=== PATIENT | female | born 1945 | race Caucasian/White ===

== ENCOUNTER 2018-04-28 19:26 | Inpatient (IN) ==
[2018-04-28] MEDS ORDERED: 0.9 % Sodium Chloride 1,000 ML IVC ONE (19:53)
--- NOTE | 2018-04-28 20:01 | Emergency Department Note ---
Disposition Clinical Impression: Ventral hernia without obstruction or gangrene Abdominal pain Qualifiers: Abdominal location: unspecified location Qualified Code(s): R10.9 - Unspecified abdominal pain Disposition: Admitted As Inpatient Condition: Good Referrals: Luis F Patrick MD [Primary Care Provider] - Forms: ED Satisfaction Letter, Work/School Release Time of Disposition: 22:03 Abdominal Pain HPI - General Chief Complaint: ED Abdominal Pain Stated Complaint: ABD pain/CP Time Seen by Provider: 04/28/18 19:43 Source: patient, family Mode of arrival: ambulatory Limitations: no limitations Nursing Notes Reviewed: Yes Vital Signs Reviewed: Yes - History of Present Illness HPI Narrative: 9-year-old female since emergency room for abdominal pain. Started a few hours ago while sitting at home getting ready to eat dinner. States she had a few bites of steak and then suddenly was having some epigastric pain that radiated up into her chest. She had no vomiting but felt slightly nauseated at that time. She states she has had diarrhea today. She does have a history of irritable bowel problems. No documented fevers. No blood in her stool. She does not have any significant pain at this very moment but when she did she had was complaining of pain in the epigastric region as well as the lower abdomen and left upper quadrant. She denies any urinary symptoms. No other modifying factors at this time. No history of bowel problems other than she has a history of irritable bowel. She currently takes medications for this Pain Scale: 7 - Related Data Home Medications Medication Instructions Recorded Confirmed Albuterol Sulfate [Proair Hfa] 2 puff IH Q4-6H PRN 06/28/16 03/28/18 Aspirin Enteric Coated [Aspirin EC] 325 mg PO DAILY 06/28/16 03/28/18 Beclomethasone Diprop 80mcg [QVAR 1 - 2 puff IH BID 06/28/16 03/28/18 80 mcg] Cholecalciferol (Vitamin D3) 30,000 unit PO DENTON 06/28/16 03/28/18 [Vitamin D3] Citalopram [CeleXA] 20 mg PO DAILY 06/28/16 03/28/18 Ezetimibe/Simvastatin [Vytorin 1 tab PO DAILY 06/28/16 03/28/18 10-40 mg Tablet] Gluc/Cecilio-MSM#1/C/Zaid/Dawit/Bor 1 tab PO DAILY 06/28/16 03/28/18 [Osteo Bi-Flex Caplet] Dicyclomine [Bentyl] 20 mg PO TID 03/03/18 03/28/18 Eluxadoline [Viberzi] 75 mg PO BID 03/03/18 03/28/18 Memantine HCl 10 mg PO BID 03/03/18 03/28/18 Previous Rx's Medication Instructions Recorded Acetaminophen [Tylenol] 1,000 mg PO Q6HR #90 tablet 03/28/18 Allergies Allergy/AdvReac Type Severity Reaction Status Date / Time lisinopril Allergy Swelling Verified 04/28/18 19:32 of Lip/Tongue/Throat All systems ED: reviewed and negative except as stated. Constitutional: Reports: as per HPI. Denies: fever, chills Eyes: Reports: as per HPI ENT ED: Reports: as per HPI Cardiovascular: Reports: as per HPI, chest pain. Denies: palpitations, dyspnea on exertion Respiratory: Denies: cough Gastrointestinal: Reports: abdominal pain, nausea, diarrhea. Denies: vomiting Genitourinary: Reports: as per HPI Musculoskeletal: Reports: as per HPI Neurological: Reports: as per HPI Psychiatric: Reports: as per HPI Endocrine: Reports: as per HPI Hematological/Lymphatic: Reports: as per HPI Allergic/Immunologic: Reports: as per HPI Abdominal Pain PMH - Past Medical History Medical history: Reports: asthma, hyperlipidemia, hypertension, TIA Psychiatric history: Reports: anxiety - Social History Smoking status: Never smoker Alcohol use: Reports: none Drug use: Reports: none Physical Exam - General Limitations: no limitations, language barrier - Head Head exam: atraumatic, normocephalic - Eye Eye exam: Present: normal appearance - ENT ENT exam: normal exam - Neck Neck exam: Present: normal inspection - Chest Chest inspection: Present: normal inspection - Respiratory Respiratory exam: Present: normal lung sounds bilaterally - Cardiovascular Cardiovascular exam: Present: regular rate, normal rhythm, normal heart sounds - Abdominal Exam Abdominal exam: Present: soft, tenderness (Patient has tenderness on palpation in the epigastric region. No guarding or rebound tenderness. Slight suprapubic tenderness as well. Normal bowel sounds.) - Extremities Exam Extremities exam: Present: normal inspection - Expanded Lower Extremity Exam Hip/Pelvis exam: Present: normal inspection - Neurological Exam Neurological exam: Present: alert, oriented X3 - Psychiatric Psychiatric exam: Present: normal affect, normal mood - Skin Skin exam: Present: warm, dry, intact Course Vital Signs Temperature 97.9 F 04/28/18 19:32 Pulse Rate 73 04/28/18 19:32 Respiratory Rate 16 04/28/18 19:32 Blood Pressure 161/87 04/28/18 19:32 O2 Sat by Pulse Oximetry 97 04/28/18 19:32 Temperature 97.9 F 04/28/18 19:32 Pulse Rate 61 04/28/18 21:43 Respiratory Rate 18 04/28/18 20:25 Blood Pressure 143/69 04/28/18 21:43 O2 Sat by Pulse Oximetry 98 04/28/18 21:43 Oxygen Delivery Oxygen Delivery Room Air Abdominal Pain - MDM Narrative Medical decision making narrative: CT shows area distal to abd hernia mesh repair with defect that has a distended urinary bladder into it. i spoke to dr stuart will admit pt to hospital [facility] mays for tonight to decompress bladder he will eval in AM spoke to hospitalist as well labs stable neg UA vss pt ok with plan - Medical Records Medical records reviewed: Yes I reviewed the patient's medical records. - Lab Data Lab results reviewed: Yes I reviewed the patient's lab results. Result diagrams: 04/28/18 19:53 04/28/18 19:53 Lab Results 04/28/18 04/28/18 04/28/18 Range/Units 19:53 19:53 19:53 WBC 6.2 (4.3-11.1) K/mcL RBC 3.58 L (3.82-4.97) M/mcL Hgb 11.7 (11.5-15.4) g/dL Hct 35.0 L (35.3-44.9) % MCV 97.8 (83.0-100.0) fL MCH 32.7 (28.0-33.3) pg MCHC 33.4 (31.6-35.5) g/dL RDW 13.5 (11.5-14.5) % Plt Count 166 (140-400) K/mcL MPV 9.3 L (9.4-12.4) fL Immature Gran % 0.6 (0-4) % Seg Neutrophils % 66.5 % Lymphocytes % 23.5 % Monocytes % 7.0 % Eosinophils % 2.1 % Basophils % 0.3 % Neutrophils # 4.1 (1.6-8.9) K/mcL Lymphocytes # 1.5 (0.6-4.6) K/mcL Monocytes # 0.4 (0.0-1.3) K/mcL Eosinophils # 0.1 (0.0-0.6) K/mcL Basophils # 0.0 (0.0-0.2) K/mcL PT 11.6 (9.4-12.1) Seconds INR 1.1 APTT 25.8 L (26.0-36.0) Seconds Sodium 140 (136-145) mEq/L Potassium 4.0 (3.5-5.1) mEq/L Chloride 110 H (98-107) mEq/L Carbon Dioxide 24 (23-29) mEq/L BUN 11 (8-23) mg/dL Creatinine 0.74 (0.60-1.20) mg/dL Est GFR ( Amer) > 60 (> 60) Est GFR (Non-Af Amer) > 60 (> 60) BUN/Creatinine Ratio 15 (6-26) Glucose 92 (70-105) mg/dL Calculated Osmolality 289 (280-300) Lactic Acid (0.5-2.2) mmol/L Calcium 8.8 (8.6-10.3) mg/dL Total Bilirubin 0.5 (0.3-1.0) mg/dL Direct Bilirubin 0.1 (0.0-0.2) mg/dL Indirect Bilirubin 0.4 (0.0-1.2) mg/dL AST 19 (13-39) Units/L ALT 16 (7-52) Units/L Alkaline Phosphatase 77 (34-104) Units/L Troponin I < 0.03 (< 0.04) ng/mL Serum Total Protein 6.5 (6.4-8.9) g/dL Albumin 4.0 (3.5-5.7) g/dL Globulin 2.5 (2.4-3.5) g/dL Albumin/Globulin Ratio 1.6 (1.1-2.2) Lipase 29 (11-82) Units/L Urine Color (Yellow) Urine Clarity (Clear) Urine pH (5.0-8.0) pH Units Ur Specific [place] (1.010-1.025) Urine Protein (Neg-Trace) mg/dL Urine Glucose (UA) (Normal) mg/dL Urine Ketones (Negative) mg/dL Urine Blood (Negative) Urine Nitrite (Negative) Urine Bilirubin (Negative) Urine Urobilinogen (Normal) mg/dL Ur Leukocyte Esterase (Negative) Urine Microscopic RBC (0-3) per hpf Ur Squamous Epith Cells (None-Few) per lpf Urine Bacteria (None-Few) per hpf Hyaline Casts (None-Few) per lpf Ur Culture Indicated? (NO) 04/28/18 04/28/18 Range/Units 20:54 21:18 WBC (4.3-11.1) K/mcL RBC (3.82-4.97) M/mcL Hgb (11.5-15.4) g/dL Hct (35.3-44.9) % MCV (83.0-100.0) fL MCH (28.0-33.3) pg MCHC (31.6-35.5) g/dL RDW (11.5-14.5) % Plt Count (140-400) K/mcL MPV (9.4-12.4) fL Immature Gran % (0-4) % Seg Neutrophils % % Lymphocytes % % Monocytes % % Eosinophils % % Basophils % % Neutrophils # (1.6-8.9) K/mcL Lymphocytes # (0.6-4.6) K/mcL Monocytes # (0.0-1.3) K/mcL Eosinophils # (0.0-0.6) K/mcL Basophils # (0.0-0.2) K/mcL PT (9.4-12.1) Seconds INR APTT (26.0-36.0) Seconds Sodium (136-145) mEq/L Potassium (3.5-5.1) mEq/L Chloride (98-107) mEq/L Carbon Dioxide (23-29) mEq/L BUN (8-23) mg/dL Creatinine (0.60-1.20) mg/dL Est GFR ( Amer) (> 60) Est GFR (Non-Af Amer) (> 60) BUN/Creatinine Ratio (6-26) Glucose (70-105) mg/dL Calculated Osmolality (280-300) Lactic Acid 0.9 (0.5-2.2) mmol/L Calcium (8.6-10.3) mg/dL Total Bilirubin (0.3-1.0) mg/dL Direct Bilirubin (0.0-0.2) mg/dL Indirect Bilirubin (0.0-1.2) mg/dL AST (13-39) Units/L ALT (7-52) Units/L Alkaline Phosphatase (34-104) Units/L Troponin I (< 0.04) ng/mL Serum Total Protein (6.4-8.9) g/dL Albumin (3.5-5.7) g/dL Globulin (2.4-3.5) g/dL Albumin/Globulin Ratio (1.1-2.2) Lipase (11-82) Units/L Urine Color Yellow (Yellow) Urine Clarity Slightly Hazy (Clear) Urine pH 6.0 (5.0-8.0) pH Units Ur Specific [place] 1.010 (1.010-1.025) Urine Protein Negative (Neg-Trace) mg/dL Urine Glucose (UA) Normal (Normal) mg/dL Urine Ketones Negative (Negative) mg/dL Urine Blood Negative (Negative) Urine Nitrite Negative (Negative) Urine Bilirubin Negative (Negative) Urine Urobilinogen Normal (Normal) mg/dL Ur Leukocyte Esterase Negative (Negative) Urine Microscopic RBC 0-3 (0-3) per hpf Ur Squamous Epith Cells Many H (None-Few) per lpf Urine Bacteria None Seen (None-Few) per hpf Hyaline Casts None Seen (None-Few) per lpf Ur Culture Indicated? NO (NO) - Radiology Data Radiology results reviewed: Yes I reviewed the patient's radiology results. - EKG Data EKG attestation: Yes I reviewed and interpreted this EKG. EKG results narrative: EKG shows a rate of 65. No sinus rhythm. Left axis deviation. CO interval 160. QRS 87. QTC 417. No sensory acute ischemia. No other abnormalities.
[2018-04-28 21:04] LABS: Basophils % 0.3 %; Eosinophils # 0.1 K/mcL (0.0-0.6); Eosinophils % 2.1 %; Hemoglobin 11.7 g/dL (11.5-15.4); Immature Granulocytes % 0.6 % (0-4); Lymphocytes # 1.5 K/mcL (0.6-4.6); Lymphocytes % 23.5 %; Mean Corpuscular HGB Conc 33.4 g/dL (31.6-35.5); Mean Corpuscular Hemoglobin 32.7 pg (28.0-33.3); Mean Corpuscular Volume 97.8 fL (83.0-100.0); Mean Platelet Volume 9.3 fL (9.4-12.4); Monocytes # 0.4 K/mcL (0.0-1.3); Neutrophils # 4.1 K/mcL (1.6-8.9); Platelet Count 166 K/mcL (140-400); Red Blood Count 3.58 M/mcL (3.82-4.97); Red Cell Distribution Width 13.5 % (11.5-14.5); Segmented Neutrophils % 66.5 %
[2018-04-28 21:11] LABS: INR 1.1; Prothrombin Time 11.6 Seconds (9.4-12.1)
[2018-04-28 21:13] LABS: Activated Partial Thrombo Time 25.8 Seconds (26.0-36.0)
[2018-04-28 21:26] LABS: Alanine Aminotransferase 16 Units/L (7-52); Albumin/Globulin Ratio 1.6 (1.1-2.2); Alkaline Phosphatase 77 Units/L (34-104); Aspartate Amino Transferase 19 Units/L (13-39); BUN/Creatinine Ratio 15 (6-26); Bilirubin,Direct 0.1 mg/dL (0.0-0.2); Bilirubin,Indirect 0.4 mg/dL (0.0-1.2); Bilirubin,Total 0.5 mg/dL (0.3-1.0); Blood Urea Nitrogen 11 mg/dL (8-23); Calcium 8.8 mg/dL (8.6-10.3); Carbon Dioxide 24 mEq/L (23-29); Chloride 110 mEq/L (98-107); Globulin 2.5 g/dL (2.4-3.5); Glucose 92 mg/dL (70-105); Lipase 29 Units/L (11-82); Osmolality,Calculated 289 (280-300); Sodium 140 mEq/L (136-145); Total Protein 6.5 g/dL (6.4-8.9); Troponin I < 0.03 ng/mL (< 0.04); eGFR For African Americans > 60 (> 60); eGFR For Non-African Americans > 60 (> 60)
[2018-04-28 21:29] LABS: Bilirubin,Urine Negative (Negative); Blood,Urine Negative (Negative); Color,Urine Yellow (Yellow); Glucose,Urine (UA) Normal (Normal); Ketones,Urine Negative (Negative); Leukocyte Esterase,Urine Negative (Negative); Nitrite,Urine Negative (Negative); Protein,Urine Negative (Neg-Trace); Urobilinogen,Urine Normal (Normal)
[2018-04-28 21:30] LABS: Bacteria,Urine None Seen per hpf (None-Few); Clarity,Urine Slightly Hazy (Clear); Hyaline Casts,Urine None Seen per lpf (None-Few); RBC,Urine 0-3 per hpf (0-3); Squamous Epithelial Cell,Urine Many per lpf (None-Few)
--- NOTE | 2018-04-28 22:04 | Internal Med History&Physical ---
Date of Encounter: 04/28/18 Time of Encounter: 22:04 Internal Medicine - H&P: HPI Chief complaint: Abdominal pain Admitted From: Emergency Dept (Abdominal pain) Plans for Post Hospital Care: Home History of present illness: Ms. Hoffman is a 72 year old female with history of hypertension, hypokalemia , TIA, varicose veins who presents to the ED with complaints of sudden onset of abdominal pain that started a few hours prior to arrival to the ED. She was having steak at the time. She initially described epigastric pain and then also described lower abdominal pain with associated nausea but no vomiting. She reports urinary frequency. She has been dealing actually with lower abdominal discomfort for a few weeks. She saw her PCP for this multiple times and was diagnosed with UTI's and put on abx. Denies any fever, chills, diarrhea , constipation, hematochezia, melena. In the ED the patient was hemodynamically stable. She underwent laboratory work that was unremarkable including LFTs and lipase. A CT abdomen and pelvis was done which showed moderate size hiatal hernia as well as postsurgical changes of prior anterior abdominal wall mesh repair with distended bladder extending through the hernia defect inferior to the mesh. Because of the defect in the mesh, Dr. christianson was contacted through the ED and recommended admission and he will come and evaluate the patient in the morning. The patient has no surgical needs that or emergent currently. She had an abdominal hernia repair about 20 years ago and had to be operated on for repair failure about 9 years ago or so by Dr. Christianson. She denies any headache, blurry vision, chest pain, shortness of breath , lower extremity edema, urinary symptoms, or neurological symptoms. Because of the distended bladder a Mays catheter was placed. Urinalysis was negative for any infection. Past Med Surg Social Fam HX - Past Medical History Medical history: asthma, hyperlipidemia, hypertension, TIA Psychiatric history: anxiety - Social History Smoking Status: Never smoker Smokeless Tobacco Status: No Alcohol use: none Drug use: none - Family History Mother Hx Family Cardiac Disorders: Yes (Stroke) Hx Family Respiratory Disorders: No Hx Family Cancer: Yes (Cervical) Hx Family GI Disorders: No Hx Family Endocrine Disorder: Yes (DM) Hx Family Neuromuscular Disorders: No Hx Family Neurologic Disorders: No Hx Family HEENT Disorders: No Hx Family Autoimmune Disorders: No Brother Hx Family Cardiac Disorders: Yes (CVA) Hx Family Respiratory Disorders: No Hx Family Cancer: No Hx Family GI Disorders: No Hx Family Endocrine Disorder: Yes (DM) Hx Family Neuromuscular Disorders: No Hx Family Neurologic Disorders: No Hx Family HEENT Disorders: No Hx Family Autoimmune Disorders: No Internal Medicine - H&P: Meds Albuterol Sulfate [Proair Hfa] 2 puff IH Q4-6H PRN 06/28/16 [History] Aspirin Enteric Coated [Aspirin EC] 325 mg PO DAILY 06/28/16 [History] Beclomethasone Diprop 80mcg [QVAR 80 mcg] 1 - 2 puff IH BID 06/28/16 [History] Cholecalciferol (Vitamin D3) [Vitamin D3] 30,000 unit PO DENTON 06/28/16 [History] Citalopram [CeleXA] 20 mg PO DAILY 06/28/16 [History] Ezetimibe/Simvastatin [Vytorin 10-40 mg Tablet] 1 tab PO DAILY 06/28/16 [History ] Gluc/Cecilio-MSM#1/C/Zaid/Dawit/Bor [Osteo Bi-Flex Caplet] 1 tab PO DAILY 06/28/16 [ History] Dicyclomine [Bentyl] 20 mg PO TID 03/03/18 [History] Eluxadoline [Viberzi] 75 mg PO BID 03/03/18 [History] Memantine HCl 10 mg PO BID 03/03/18 [History] Acetaminophen [Tylenol] 1,000 mg PO Q6HR #90 tablet 03/28/18 [Rx] 3 Allergy/AdvReac Type Severity Reaction Status Date / Time lisinopril Allergy Swelling Verified 04/28/18 19:32 of Lip/Tongue/Throat All Systems PM: A 10-system review of systems was performed and is negative for pertinent findings except as documented above in the HPI. Review of systems: All systems reviewed are negative except as mentioned above - Constitutional Vitals: Temp Pulse Resp BP Pulse Ox 97.9 F 61 18 143/69 98 04/28/18 19:32 04/28/18 21:43 04/28/18 20:25 04/28/18 21:43 04/28/18 21:43 Exam: GEN: NAD HEENT: AT, NC, No cyanosis, oral mucosa is moist, No JVD Lymphatics: No lymphadenoapthy Eyes: Extrocular muscles intact, anicteric CVS:RRR. S1, S2, No m/r/g RESP: CTAB ABD: Soft, mild epigastric and lower abdominal tenderness with no rebound, ND, + BS EXT: No edema, No rashes, 2+ DP NEURO: Nonfocal, CN II-XII intact, No focal motor or sensory deficits Psych: Cooperative, Not anxious or depressed Internal Med - H&P Results - Labs CBC & Chem 7: 04/28/18 19:53 04/28/18 19:53 Labs: Short CBC 04/28/18 Range/Units 19:53 WBC 6.2 (4.3-11.1) K/mcL Hgb 11.7 (11.5-15.4) g/dL Hct 35.0 L (35.3-44.9) % Plt Count 166 (140-400) K/mcL Neutrophils # 4.1 (1.6-8.9) K/mcL BMP 04/28/18 19:53 Sodium 140 Potassium 4.0 Chloride 110 H Carbon Dioxide 24 BUN 11 Creatinine 0.74 Glucose 92 Calcium 8.8 Cardiac Enzymes 04/28/18 Range/Units 19:53 Troponin I < 0.03 (< 0.04) ng/mL Liver Function 04/28/18 Range/Units 19:53 Total Bilirubin 0.5 (0.3-1.0) mg/dL Direct Bilirubin 0.1 (0.0-0.2) mg/dL AST 19 (13-39) Units/L ALT 16 (7-52) Units/L Alkaline Phosphatase 77 (34-104) Units/L Albumin 4.0 (3.5-5.7) g/dL Urine 04/28/18 Range/Units 21:18 Urine Color Yellow (Yellow) Urine Clarity Slightly Hazy (Clear) Urine pH 6.0 (5.0-8.0) pH Units Ur Specific [place] 1.010 (1.010-1.025) Urine Protein Negative (Neg-Trace) mg/dL Urine Glucose (UA) Normal (Normal) mg/dL - Impressions ITS Impressions Abdomen/Pelvis CT 04/28/18 19:53 IMPRESSION: 1. Moderate-sized hiatal hernia. 2. Postsurgical changes of prior anterior abdominal wall mesh repair with distended bladder extending through a hernia defect inferior to the mesh. 3. No evidence for bowel obstruction. 4. Diverticulosis without evidence for diverticulitis. D/ / Fer Nagel MD / Fer Nagel MD Interpreting Provider: Fer Nagel MD Chest X-Ray 04/28/18 19:54 IMPRESSION: No acute process. D/ / Benjamin Wiggins MD / Benjamin Wiggins MD Interpreting Provider: Benjamin Wiggins MD - Assessment and plan (1) Abdominal pain Current Visit: Yes Status: Acute Assessment and plan: Unclear etiology but most likely secondary to the defect in the previous abdominal wall hernia repair mesh as well as a hiatal hernia. We will admit patient for observation and pain control with a consult for Dr. Christianson. Nothing by mouth after midnight. Antiemetics. IV PPI. Gentle hydration Qualifiers: Abdominal location: unspecified location Qualified Code(s): R10.9 - Unspecified abdominal pain (2) Urinary frequency Current Visit: Yes Status: Acute Assessment and plan: UA is not indicative of an infection. I think this likely from the hernia pushing on the bladder. A mays has been ordered. (3) Hyperlipemia Current Visit: No Status: Acute Assessment and plan: Resume home meds. Qualifiers: Hyperlipidemia type: unspecified Qualified Code(s): E78.5 - Hyperlipidemia , unspecified (4) Hypertension Current Visit: No Status: Acute Assessment and plan: resume home antihyperten. Qualifiers: Hypertension type: essential hypertension Qualified Code(s): I10 - Essential (primary) hypertension (5) TAMAR (obstructive sleep apnea) Current Visit: Yes Status: Acute Assessment and plan: CPAP (6) DVT prophylaxis Current Visit: No Status: Acute Assessment and plan: Heparin subcutaneous - Time Spent With Patient Total time spent is greater than 50% in coordination of care (as documented) at patient's floor/unit and/or counseling patient:
[2018-04-28] MEDS ORDERED: Ondansetron 4 MG/2 ML VIAL IVP PRN (22:05)
[2018-04-28] MEDS ORDERED: Acetaminophen 325 MG TABLET PO PRN (22:07)
[2018-04-28] MEDS ORDERED: Naloxone 0.4 MG/ML INJ IVP PRN (22:07)
[2018-04-28] MEDS ORDERED: *HR* HYDROcodone/Acet 5/325 mg TABLET PO PRN (22:07)
[2018-04-29] MEDS: 0.9 % Sodium Chloride 1,000 ML IVC SCH ×2 (00:25→16:32)
[2018-04-29] MEDS: Pantoprazole 40 MG VIAL IVP SCH ×2 (00:25→08:06)
[2018-04-29] MEDS: *HR* Heparin 5,000 UNIT/ML VIAL SQ SCH ×3 (05:08→22:33)
[2018-04-29 06:27] LABS: Basophils % 0.2 %; Eosinophils # 0.2 K/mcL (0.0-0.6); Eosinophils % 3.4 %; Hematocrit 34.1 % (35.3-44.9); Hemoglobin 11.1 g/dL (11.5-15.4); Immature Granulocytes % 0.4 % (0-4); Lymphocytes # 1.6 K/mcL (0.6-4.6); Lymphocytes % 33.7 %; Mean Corpuscular HGB Conc 32.6 g/dL (31.6-35.5); Mean Corpuscular Hemoglobin 31.9 pg (28.0-33.3); Mean Platelet Volume 9.7 fL (9.4-12.4); Monocytes # 0.4 K/mcL (0.0-1.3); Monocytes % 7.6 %; Neutrophils # 2.6 K/mcL (1.6-8.9); Platelet Count 139 K/mcL (140-400); Red Blood Count 3.48 M/mcL (3.82-4.97); Red Cell Distribution Width 13.5 % (11.5-14.5); Segmented Neutrophils % 54.7 %
[2018-04-29 07:02] LABS: BUN/Creatinine Ratio 19 (6-26); Blood Urea Nitrogen 11 mg/dL (8-23); Calcium 8.2 mg/dL (8.6-10.3); Carbon Dioxide 23 mEq/L (23-29); Chloride 112 mEq/L (98-107); Glucose 84 mg/dL (70-105); Magnesium 2.1 mg/dL (1.6-2.6); Osmolality,Calculated 293 (280-300); Potassium 3.7 mEq/L (3.5-5.1); Sodium 142 mEq/L (136-145); eGFR For African Americans > 60 (> 60); eGFR For Non-African Americans > 60 (> 60)
--- NOTE | 2018-04-29 11:04 | Internal Med Progress Note ---
Date of Encounter: 04/29/18 Time of Encounter: 11:01 - Assessment and plan (1) Abdominal pain Current Visit: Yes Status: Acute Assessment and plan: presented with ABD pain that started after eating steak. ABD CT moderate-sized hiatal hernia, postsurgical changes of previous abdominal wall mesh repair with distended bladder extending to the hernia defect. ABD pain likely secondary to the defect in the previous abdominal wall hernia repair mesh as well as a hiatal hernia. Keep NPO, IV fluids. Dr. Christianson consulted. ABD pain improved on 04/29 exam Qualifiers: Abdominal location: unspecified location Qualified Code(s): R10.9 - Unspecified abdominal pain (2) Urinary frequency Current Visit: Yes Status: Acute Assessment and plan: UA is not indicative of an infection; urinary frequency likely from hernia pushing on bladder. Cont mays catheter until evaluated by surgery (3) Hypertension Current Visit: No Status: Acute Assessment and plan: per hx. BP variable but acceptable. Not on BP medications at home. Monitor BP and add antihypertensive agent if needed. Qualifiers: Hypertension type: essential hypertension Qualified Code(s): I10 - Essential (primary) hypertension (4) Hyperlipemia Current Visit: No Status: Acute Assessment and plan: per hx. Cont home statin once med rec completed Qualifiers: Hyperlipidemia type: unspecified Qualified Code(s): E78.5 - Hyperlipidemia , unspecified (5) TAMAR (obstructive sleep apnea) Current Visit: Yes Status: Acute Assessment and plan: CPAP (6) DVT prophylaxis Current Visit: No Status: Acute Assessment and plan: Heparin subcutaneous - Time Spent With Patient Total time spent is greater than 50% in coordination of care (as documented) at patient's floor/unit and/or counseling patient: - Subjective Interval history: Seen and examined at bedside. Patient is new to me, information obtained from chart review and patient report. Says she feels much better today. Still has some mild abdominal pain but overall significantly improved. No nausea or vomiting. She does report loose stool but says she has IBS and stools are consistent with her normal bowel pattern. - Constitutional Vitals: Temp Pulse Resp BP Pulse Ox 98.1 F 48 15 148/69 97 04/29/18 10:25 04/29/18 10:25 04/29/18 10:25 04/29/18 10:25 04/29/18 10:25 General appearance: Present: A&O X 3, morbidly obese, pleasant, no acute distress - Head Head exam: Present: atraumatic, normocephalic - Eye Eye exam: Present: PERRL, conjuntiva pink, sclera anicteric Pupils: Present: PERRL - Neck Neck exam general surgery: Present: supple, trachea midline. Absent: lymphadenopathy - Respiratory Respiratory exam: Present: CTAB. Absent: accessory muscle use, rales, rhonchi, wheezes - Cardiovascular Cardiovascular exam: Present: RRR, +S1, +S2. Absent: diastolic murmur, gallop, rubs, systolic murmur - GI/Abdominal GI/Abdominal exam: Present: normal bowel sounds, soft, no peritoneal signs. Absent: distended, tenderness - Extremities Exam Extremities exam: Present: warm, radial pulses palpable and symmetrical. Absent : calf tenderness, cyanotic, pedal edema - Neurological Exam Neurological exam: Present: CN II-XII intact, oriented X3, no focal deficits. Absent: pronater drift, facial droop, speech deficit - Skin Skin exam: Present: dry, intact Internal Medicine: Result - Labs CBC & Chem 7: 04/29/18 05:57 04/29/18 05:57 Labs: Short CBC 04/29/18 Range/Units 05:57 WBC 4.7 (4.3-11.1) K/mcL Hgb 11.1 L (11.5-15.4) g/dL Hct 34.1 L (35.3-44.9) % Plt Count 139 L (140-400) K/mcL Neutrophils # 2.6 (1.6-8.9) K/mcL BMP 04/29/18 05:57 Sodium 142 Potassium 3.7 Chloride 112 H Carbon Dioxide 23 BUN 11 Creatinine 0.58 L Glucose 84 Calcium 8.2 L - ABG Interpretation ABG results: PT/INR, D-dimer PT 11.6 Seconds (9.4-12.1) 04/28/18 19:53 Consult Discharge Plan - Plan Referrals: Luis F Patrick MD [Primary Care Provider] -
--- NOTE | 2018-04-29 13:10 | Cardiology Consult Note ---
<Aureliano Harrell R - Last Filed: 04/29/18 13:06> Date of Encounter: 04/29/18 Time of Encounter: 13:06 Assessment and Plan (1) Pre-operative cardiovascular examination Current Visit: Yes Status: Acute Cardiology consulted for pre-op risk stratification prior to hernia repair. Initial troponin negative, no significant EKG changes. No recent ischemic evaluation. Presumed CAD based on echo 06/2016 which showed overall preserved EF of 50-55%, but hypokinesis of apical inferior wall. Previously has been medically managed due to lack of symptoms. Denies chest pain or dyspnea. Carotid dopplers 06/2016 right internal carotid 60-79% stenosis and left internal 40-59%. Recheck carotid dopplers. Pt states activity is limited due to arthritis and joint pain. She is able to climb stairs, but very slowly and one foot at a time. Unable to achieve 4 METS. Repeat echo to re-evaluate structure and function. Recommend ischemic evaluation prior to surgery to help accurately risk stratify. Recommend pharmacologic nuclear stress test in AM. Further recommendations/risk stratification pending echo, carotid, and stress test results. Continue to follow. (2) Abnormal echocardiogram Current Visit: Yes Status: Acute As above, 06/2016 EF 50-55%, hypokinesis of apical inferior wall. Repeat echo. Plan for stress test in AM. (3) Bradycardia Current Visit: Yes Status: Acute HR documented as 40s-60s on vitals. Per pt, heart rate chronically low. Not on AV jose luis blockers. Will order for pt to be put on telemetry. Discussion w patient/family: The assessment and plan as outlined above was discussed with the patient and/or family members who expressed understanding and agreement. All questions were answered. Thank you for involving us in the care of your patient. Please call with any questions. I will discuss all the above with Dr. Woods and make changes as necessary. History of Present Illness Consult date: 04/29/18 Requesting physician: Maria Elena Baron Consult reason: Pre-op risk stratification Chief complaint: abdominal pain History of present illness: Ms. Hoffman is a 72 year old female with PMH of HTN, hypokalemia, TIA, varicose veins, presumed CAD based on echo with apical inferior wall hypokinesis who presented to ED with complaint of sudden onset of abdominal pain after eating a few bites of steak. Pain was epigastric, radiated up her chest, associated nausea but no vomiting. A CT abdomen and pelvis was done, shows moderate size hiatal hernia as well as postsurgical changes of prior anterior abdominal wall mesh repair with distended bladder extending through the hernia defect inferior to the mesh. Because of the defect in the mesh, Dr. stuart was contacted through the ED and recommended admission. Plan is for hernia surgery. Cardiology consulted for pre-op risk stratification. Pt denies chest pain or dyspnea, but reports her joint pain and arthritis make it difficult to be very active. Past Med Surg Social Fam HX - Past Medical History Medical history: asthma, hyperlipidemia, hypertension, TIA Psychiatric history: anxiety - Social History Smoking Status: Never smoker Smokeless Tobacco Status: No Alcohol use: none Drug use: none - Family History Mother Hx Family Cardiac Disorders: Yes (Stroke) Hx Family Respiratory Disorders: No Hx Family Cancer: Yes (Cervical) Hx Family GI Disorders: No Hx Family Endocrine Disorder: Yes (DM) Hx Family Neuromuscular Disorders: No Hx Family Neurologic Disorders: No Hx Family HEENT Disorders: No Hx Family Autoimmune Disorders: No Brother Hx Family Cardiac Disorders: Yes (cva) Hx Family Respiratory Disorders: No Hx Family Cancer: No Hx Family GI Disorders: No Hx Family Endocrine Disorder: Yes (DM) Hx Family Neuromuscular Disorders: No Hx Family Neurologic Disorders: No Hx Family HEENT Disorders: No Hx Family Autoimmune Disorders: No Medications and Allergies Albuterol Sulfate [Proair Hfa] 2 puff IH Q4-6H PRN 06/28/16 [History] Aspirin Enteric Coated [Aspirin EC] 325 mg PO DAILY 06/28/16 [History] Citalopram [CeleXA] 20 mg PO DAILY 06/28/16 [History] Ezetimibe/Simvastatin [Vytorin 10-40 mg Tablet] 1 tab PO DAILY 06/28/16 [History ] Gluc/Cecilio-MSM#1/C/Zaid/Dawit/Bor [Osteo Bi-Flex Caplet] 1 tab PO DAILY 06/28/16 [ History] Dicyclomine [Bentyl] 20 mg PO TID 03/03/18 [History] Eluxadoline [Viberzi] 75 mg PO BID 03/03/18 [History] Memantine HCl 10 mg PO BID 03/03/18 [History] Acetaminophen [Tylenol] 1,000 mg PO Q6HR #90 tablet 03/28/18 [Rx] Cholecalciferol (D-3) [Vitamin D] 4,000 unit PO DAILY 04/29/18 [History] [place]-3/Dha/Epa/Fish Oil [Fish Oil 1,000 mg Softgel] 1 cap PO DAILY 04/29/18 [ History] 3 Allergy/AdvReac Type Severity Reaction Status Date / Time lisinopril Allergy Swelling Verified 04/29/18 11:34 of Lip/Tongue/Throat All Systems Review: The remainder of the systems were reviewed and are negative - Gastrointestinal Gastrointestinal: abdominal pain, nausea Physical Examination Vital Signs, Last 4 Hours Temp Pulse Resp BP Pulse Ox 04/29/18 10:25 98.1 F 48 15 148/69 97 Vital Signs Temp Pulse Resp BP Pulse Ox 04/29/18 10:25 98.1 F 48 15 148/69 97 04/29/18 06:43 97.7 F 54 15 137/71 98 04/29/18 04:48 98.3 F 63 14 114/70 98 04/29/18 00:13 97.8 F 57 14 151/71 98 04/28/18 23:16 18 146/85 04/28/18 22:24 56 18 151/93 96 04/28/18 21:43 61 143/69 98 04/28/18 20:25 62 18 124/58 99 04/28/18 19:57 68 18 134/76 96 04/28/18 19:41 85 18 158/98 97 04/28/18 19:32 97.9 F 73 16 161/87 97 Intake and Output 04/28/18 04/29/18 04/29/18 23:59 07:59 15:59 Intake Total 1000 / 1000 0 / 0 0 / 0 Output Total 1000 / 1000 550 / 550 Balance 1000 / 1000 -1000 / -1000 -550 / -550 Intake: IV Fluids 1000 / 1000 0.9 % Sodium Chloride 1,000 ML 1000 / 1000 @ 3750 mls/hr IVC .Q16M ONE Rx# :[id number] Oral 0 / 0 0 / 0 Output: Urine 0 / 0 Catheter 1000 / 1000 550 / 550 Other: Meal NPO Stool Characteristics Normal for Patient Weight 86.636 kg 90.855 kg Blood Glucose* 81 90 Patient Weight 04/29/18 23:59 Weight 90.855 kg General: Conversant, No Apparent Distress HEENT: Atraumatic, Normocephaly, Mucus Membranes Moist Neck: No JVD, Normal carotid pulses Cardiac: Reg Rate and Rhythm, Normal S1 and S2, No Murmur Lungs: Normal Breath Sounds, No Wheeze, Rales, Rhonchi Neuro: Alert and responsive, No focal deficits noted Abdomen: Other (tender) Skin: No rashes noted on visualized skin Musculoskeletal: No Chest Wall Tenderness Extremities: No Clubbing, No Cyanosis, No Edema, Normal Pulses Results 04/29/18 05:57 04/29/18 05:57 Lab Results 04/29/18 04/29/18 05:57 05:57 WBC 4.7 Hgb 11.1 L Hct 34.1 L Plt Count 139 L Sodium 142 Potassium 3.7 Chloride 112 H Carbon Dioxide 23 BUN 11 Creatinine 0.58 L Glucose 84 Calcium 8.2 L Magnesium 2.1 Short CBC 04/29/18 04/28/18 Range/Units 05:57 19:53 WBC 4.7 6.2 (4.3-11.1) K/mcL Hgb 11.1 L 11.7 (11.5-15.4) g/dL Hct 34.1 L 35.0 L (35.3-44.9) % Plt Count 139 L 166 (140-400) K/mcL Neutrophils # 2.6 4.1 (1.6-8.9) K/mcL BMP 04/29/18 04/28/18 Range/Units 05:57 19:53 Sodium 142 140 (136-145) mEq/L Potassium 3.7 4.0 (3.5-5.1) mEq/L Chloride 112 H 110 H (98-107) mEq/L Carbon Dioxide 23 24 (23-29) mEq/L BUN 11 11 (8-23) mg/dL Creatinine 0.58 L 0.74 (0.60-1.20) mg/dL Glucose 84 92 (70-105) mg/dL Calcium 8.2 L 8.8 (8.6-10.3) mg/dL Cardiac Enzymes 04/28/18 Range/Units 19:53 Troponin I < 0.03 (< 0.04) ng/mL Liver Function 04/28/18 Range/Units 19:53 Total Bilirubin 0.5 (0.3-1.0) mg/dL Direct Bilirubin 0.1 (0.0-0.2) mg/dL AST 19 (13-39) Units/L ALT 16 (7-52) Units/L Alkaline Phosphatase 77 (34-104) Units/L Albumin 4.0 (3.5-5.7) g/dL Urine 04/28/18 Range/Units 21:18 Urine Color Yellow (Yellow) Urine Clarity Slightly Hazy (Clear) Urine pH 6.0 (5.0-8.0) pH Units Ur Specific [place] 1.010 (1.010-1.025) Urine Protein Negative (Neg-Trace) mg/dL Urine Glucose (UA) Normal (Normal) mg/dL Impressions Abdomen/Pelvis CT 04/28/18 19:53 IMPRESSION: 1. Moderate-sized hiatal hernia. 2. Postsurgical changes of prior anterior abdominal wall mesh repair with distended bladder extending through a hernia defect inferior to the mesh. 3. No evidence for bowel obstruction. 4. Diverticulosis without evidence for diverticulitis. D/ / Fer Nagel MD / Fer Nagel MD Interpreting Provider: Fer Nagel MD Chest X-Ray 04/28/18 19:54 IMPRESSION: No acute process. D/ / Benjamin Wiggins MD / Benjamin Wiggins MD Interpreting Provider: Benjamin Wiggins MD Active Medications Acetaminophen (Tylenol) 650 mg PO Q6HR PRN PRN Reason: Mild Pain/Fever Stop: 10/28/18 22:08 Hydrocodone Bitart/Acetaminophen ([place] 5-325 Mg) 1 tab PO Q6HR PRN PRN Reason: Moderate Pain Stop: 10/28/18 22:08 Heparin Sodium (Porcine) (Heparin) 5,000 unit SQ Q8HCO HARESH Stop: 10/29/18 06:01 Last Admin: 04/29/18 05:08 Dose: Not Given Sodium Chloride (0.9 % Sodium Chloride) 1,000 mls @ 100 mls/hr IVC .Q10H HARESH Stop: 10/28/18 22:31 Last Admin: 04/29/18 00:25 Dose: 100 mls/hr Naloxone HCl (Narcan) 0.4 mg IVP Q2MIN PRN PRN Reason: SEE COMMENTS Stop: 10/28/18 22:08 Ondansetron HCl (Zofran) 4 mg IVP Q6HR PRN; Protocol PRN Reason: Nausea And Vomiting Stop: 10/28/18 22:06 Pantoprazole Sodium (Protonix) 40 mg IVP DAILY HARESH Stop: 10/28/18 22:31 Last Admin: 04/29/18 08:06 Dose: 40 mg - Imaging and Cardiology Echo: report reviewed - EKG Interpretation EKG results cardiology: personally reviewed (SR, left axis deviation) Consult Discharge Plan - Plan Referrals: Luis F Patrick MD [Primary Care Provider] - <Adiel Woods - Last Filed: 04/29/18 15:08> Date of Encounter: 04/29/18 - Attending Attestation I have personally performed a face to face evaluation on this patient. I have reviewed and agree with the care plan. History and Exam by me shows: yo YOF here for abdomainal pain and planned surgery in 24 hours for hernia repair. Previous ECHO with RWMA and presumed CAD but no ischemic eval done. Patient limited in her mobility due to arthritis and hence functional capacity cannot be defined. Will pursure ischemic work up with chemical stress test. If surgery is emergent then no cardiac testing and patient should proceed with surgery. Assessment and Plan Discussion w patient/family: The assessment and plan as outlined above was discussed with the patient and/or family members who expressed understanding and agreement. All questions were answered. Thank you for involving us in the care of your patient. Please call with any questions. History of Present Illness History of present illness: Ms. Hoffman is a 72 year old female All Systems Review: The remainder of the systems were reviewed and are negative Physical Examination Vital Signs, Last 4 Hours Temp Pulse Resp BP Pulse Ox 04/29/18 14:35 97.8 F 66 16 116/68 97 Results 04/29/18 05:57 04/29/18 05:57 Lab Results 04/29/18 04/29/18 05:57 05:57 WBC 4.7 Hgb 11.1 L Hct 34.1 L Plt Count 139 L Sodium 142 Potassium 3.7 Chloride 112 H Carbon Dioxide 23 BUN 11 Creatinine 0.58 L Glucose 84 Calcium 8.2 L Magnesium 2.1
--- NOTE | 2018-04-29 13:52 | General Surgery Consult Note ---
Date of Encounter: 04/29/18 Time of Encounter: 13:00 History of Present Illness Requesting physician: Tal Girard History of present illness: 72 yo, admitted after presenting to [facility] ED for further evaluation and treatment of abrupt onset abdominal pain. This was accompanied by nausea but no emesis. No fever or chills. Patient describes an episode of diarrhea without evidence of blood per rectum. Laboratories were fairly unremarkable. Hematocrit was low at 35.0, chloride was elevated at 110 but the remainder of her CBC, lites, BUN, creatinine and LFTs were within normal limits. CT abdomen/ pelvis demonstrating a moderate sized hiatal hernia; a distended urinary bladder prolapsing through a suprapubic abdominal wall defect; evidence of previous ventral incisional hernia repair with mesh. The suprapubic abdominal wall defect is notably caudal to this prior hernia repair with mesh. Past medical history: Arthritis; asthma, hyperlipidemia, hypertension; and prior TIA (Dr. Dumont, [facility] has determined that this was not a stroke); dementia, generalized anxiety; history of cervical cancer Surgical history: Left knee arthroscopy; partial hysterectomy; exploratory celiotomy with removal of cervix and ovaries; repair of ventral incisional hernia using mesh, 2007 - is apparently required extensive lysis of adhesions, partial omentectomy and incidental appendectomy. varicose vein stripping; repeat treatment of varicosities approximately 2 months ago. The patient now has evidence of a recurrent ventral incisional hernia caudal to the mesh prosthesis used in 2007. Allergies: Lisinopril Medications: Albuterol sulfate (ProAir HFA) 2 puffs every 4-6 hours as needed Aspirin 325 mg by mouth daily Beclomethasone dipropionate 80 g per actuation (Qvar) 1-2 puffs twice a day Cholecalciferol 30,000 units by mouth every Saturday Citalopram 20 mg by mouth daily Ezetimibe/simvastatin (Vytorin 10/40) 1 tablet by mouth daily Osteo Bi-Flex 1 by mouth daily Dicyclomine 20 mg by mouth 3 times a day Eluxadoline 75 mg by mouth twice a day Amantadine 10 mg by mouth twice a day Acetaminophen 1000 mg by mouth every 6 hours Social history: Patient is , lives with her spouse; she has never smoked ; the patient denies any alcohol or illicit drug use. On physical examination: Obese female who appears to be younger than her stated age resting comfortably in her hospital bed. She is in no acute distress. She is 1.57 m, 90.86 kg, BMI 36.6. Patient is currently afebrile, 98.1; pulse 48-63, respirations 15, blood pressure 148/69. SPO2 on room air 97%. Skin: Warm, no obvious jaundice Lungs: Clear, no obvious abdominal pain with deep inspiration Cardiac: Rate was slow but regular; no appreciable murmurs Abdomen: Obese with a palpable fascial defect suprapubically, left of midline. No obvious incarcerated tissue. No obvious tenderness. No peritoneal signs or rebound. Cornell catheter present, draining clear urine. Active bowel sounds. Extremities: No obvious clubbing, cyanosis, or edema. CT abdomen/pelvis reviewed with [facility] Labs reviewed Impression: 72-year-old female referred for further surgical evaluation and treatment after presenting to the [facility] ED with abrupt onset of abdominal pain. Patient has radiologic evidence of a prior ventral incisional hernia repair using mesh with a recurrent ventral incisional hernia caudal to the prior mesh repair with urinary bladder prolapsing through the defect. No obvious bowel involvement/bowel obstruction. L lengthy discussion ensued. Surgical repair of this defect has been recommended and discussed in detail. The patient admits to being seen by her primary care physician with Vague complaints of suprapubic pain and has been treated for recurrent urinary tract infection. I suspect these complaints are due to the hernia and portion of analia anterior bladder prolapsing thru the defect in the anterior abdominal wall. Despite the patient's complaints of pain, this was not clinically apparent during my examination of the patient. Risks of surgery include hemorrhage, infection, intra-abdominal abscess, injury to adjacent structures, stroke/TIA, cardiac dysrhythmia, [place], pneumonia/respiratory failure and recurrent hernia. The patient has a history of at least 2 prior pelvic surgeries. Dense adhesions may be present and increase the difficulty of completing the recommended surgical repair. The risks of continued expectant follow-up, include urinary retention, recurrent bladder infections and possible ascending infection/pyelonephritis, enlargement of the hernia with progressive prolapse of the urinary bladder, and involvement of colon and other intra- abdominal structures. The patient provides a history of recent cardiac evaluation (03/28/2018) prior to left lower extremity phlebectomy completed by Dr. Rothman. A pre op cardiac consultation will be requested with surgery planned in AM if deemed cardiac stable. Past Med Surg Social Fam HX - Past Medical History Medical history: asthma, hyperlipidemia, hypertension, TIA Psychiatric history: anxiety - Social History Smoking Status: Never smoker Smokeless Tobacco Status: No Alcohol use: none Drug use: none - Family History Mother Hx Family Cardiac Disorders: Yes (Stroke) Hx Family Respiratory Disorders: No Hx Family Cancer: Yes (Cervical) Hx Family GI Disorders: No Hx Family Endocrine Disorder: Yes (DM) Hx Family Neuromuscular Disorders: No Hx Family Neurologic Disorders: No Hx Family HEENT Disorders: No Hx Family Autoimmune Disorders: No Brother Hx Family Cardiac Disorders: Yes (cva) Hx Family Respiratory Disorders: No Hx Family Cancer: No Hx Family GI Disorders: No Hx Family Endocrine Disorder: Yes (DM) Hx Family Neuromuscular Disorders: No Hx Family Neurologic Disorders: No Hx Family HEENT Disorders: No Hx Family Autoimmune Disorders: No Medications and Allergies Albuterol Sulfate [Proair Hfa] 2 puff IH Q4-6H PRN 06/28/16 [History] Aspirin Enteric Coated [Aspirin EC] 325 mg PO DAILY 06/28/16 [History] Citalopram [CeleXA] 20 mg PO DAILY 06/28/16 [History] Ezetimibe/Simvastatin [Vytorin 10-40 mg Tablet] 1 tab PO DAILY 06/28/16 [History ] Gluc/Cecilio-MSM#1/C/Zaid/Dawit/Bor [Osteo Bi-Flex Caplet] 1 tab PO DAILY 06/28/16 [ History] Dicyclomine [Bentyl] 20 mg PO TID 03/03/18 [History] Eluxadoline [Viberzi] 75 mg PO BID 03/03/18 [History] Memantine HCl 10 mg PO BID 03/03/18 [History] Acetaminophen [Tylenol] 1,000 mg PO Q6HR #90 tablet 03/28/18 [Rx] Cholecalciferol (D-3) [Vitamin D] 4,000 unit PO DAILY 04/29/18 [History] [place]-3/Dha/Epa/Fish Oil [Fish Oil 1,000 mg Softgel] 1 cap PO DAILY 04/29/18 [ History] 3 Allergy/AdvReac Type Severity Reaction Status Date / Time lisinopril Allergy Swelling Verified 04/29/18 11:34 of Lip/Tongue/Throat Review of Systems All systems PM: The remainder of the systems were reviewed and are negative General Surgery Exam Initial Vital Signs Temp Pulse Resp BP Pulse Ox 97.9 F 73 16 161/87 97 04/28/18 19:32 04/28/18 19:32 04/28/18 19:32 04/28/18 19:32 04/28/18 19:32 Exam Initial Vital Signs Temp Pulse Resp BP Pulse Ox 97.9 F 73 16 161/87 97 04/28/18 19:32 04/28/18 19:32 04/28/18 19:32 04/28/18 19:32 04/28/18 19:32 Results - Labs 04/29/18 05:57 04/29/18 05:57 Abnormal lab results RBC 3.48 M/mcL (3.82-4.97) L 04/29/18 05:57 Hgb 11.1 g/dL (11.5-15.4) L 04/29/18 05:57 Hct 34.1 % (35.3-44.9) L 04/29/18 05:57 Plt Count 139 K/mcL (140-400) L 04/29/18 05:57 APTT 25.8 Seconds (26.0-36.0) L 04/28/18 19:53 Chloride 112 mEq/L (98-107) H 04/29/18 05:57 Creatinine 0.58 mg/dL (0.60-1.20) L 04/29/18 05:57 Calcium 8.2 mg/dL (8.6-10.3) L 04/29/18 05:57 Ur Squamous Epith Cells Many per lpf (None-Few) H 04/28/18 21:18 Diabetes panel 04/29/18 Range/Units 05:57 Sodium 142 (136-145) mEq/L Potassium 3.7 (3.5-5.1) mEq/L Chloride 112 H (98-107) mEq/L Carbon Dioxide 23 (23-29) mEq/L BUN 11 (8-23) mg/dL Creatinine 0.58 L (0.60-1.20) mg/dL Glucose 84 (70-105) mg/dL Calcium 8.2 L (8.6-10.3) mg/dL Calcium panel 04/29/18 Range/Units 05:57 Calcium 8.2 L (8.6-10.3) mg/dL Pituitary panel 04/29/18 Range/Units 05:57 Sodium 142 (136-145) mEq/L Potassium 3.7 (3.5-5.1) mEq/L Chloride 112 H (98-107) mEq/L Carbon Dioxide 23 (23-29) mEq/L BUN 11 (8-23) mg/dL Creatinine 0.58 L (0.60-1.20) mg/dL Glucose 84 (70-105) mg/dL Calcium 8.2 L (8.6-10.3) mg/dL Adrenal panel 04/29/18 Range/Units 05:57 Sodium 142 (136-145) mEq/L Potassium 3.7 (3.5-5.1) mEq/L Chloride 112 H (98-107) mEq/L Carbon Dioxide 23 (23-29) mEq/L BUN 11 (8-23) mg/dL Creatinine 0.58 L (0.60-1.20) mg/dL Glucose 84 (70-105) mg/dL Calcium 8.2 L (8.6-10.3) mg/dL All other labs normal. Consult Discharge Plan - Plan Referrals: Luis F Patrick MD [Primary Care Provider] -
--- NOTE | 2018-04-29 19:24 | Anesthesia Evaluation PreOp ---
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: TIA Other Medical History: Denies Any Significant HX Anesthesia History: No Prior Anesthetic Complications : No Alcohol Use: none Drug use: none Medications and Allergies Albuterol Sulfate [Proair Hfa] 2 puff IH Q4-6H PRN 06/28/16 [History] Aspirin Enteric Coated [Aspirin EC] 325 mg PO DAILY 06/28/16 [History] Citalopram [CeleXA] 20 mg PO DAILY 06/28/16 [History] Ezetimibe/Simvastatin [Vytorin 10-40 mg Tablet] 1 tab PO DAILY 06/28/16 [History ] Gluc/Cecilio-MSM#1/C/Zaid/Dawit/Bor [Osteo Bi-Flex Caplet] 1 tab PO DAILY 06/28/16 [ History] Dicyclomine [Bentyl] 20 mg PO TID 03/03/18 [History] Eluxadoline [Viberzi] 75 mg PO BID 03/03/18 [History] Memantine HCl 10 mg PO BID 03/03/18 [History] Acetaminophen [Tylenol] 1,000 mg PO Q6HR #90 tablet 03/28/18 [Rx] Cholecalciferol (D-3) [Vitamin D] 4,000 unit PO DAILY 04/29/18 [History] [place]-3/Dha/Epa/Fish Oil [Fish Oil 1,000 mg Softgel] 1 cap PO DAILY 04/29/18 [ History] 3 Allergy/AdvReac Type Severity Reaction Status Date / Time lisinopril Allergy Swelling Verified 04/29/18 11:34 of Lip/Tongue/Throat - Meds/Allergy Pre-op Review Medications Reviewed: Yes Allergies Reviewed: Yes Beta Blockers on Current Med List: No Anesthesia Results - Labs 04/29/18 05:57 04/29/18 05:57 - Imaging EKG: report reviewed (SR marked Left [place] Deviation) Additional studies: ECHO EF 55% but Apical Hypokinesis Anesthesia Exam O2 Sat Height 1.57 m Height 1.57 m Weight 90.855 kg Weight 90.855 kg Weight 86.636 kg O2 Sat by Pulse Oximetry 97 O2 Sat by Pulse Oximetry 97 O2 Sat by Pulse Oximetry 97 O2 Sat by Pulse Oximetry 98 O2 Sat by Pulse Oximetry 98 O2 Sat by Pulse Oximetry 98 O2 Sat by Pulse Oximetry 96 O2 Sat by Pulse Oximetry 98 O2 Sat by Pulse Oximetry 99 O2 Sat by Pulse Oximetry 96 O2 Sat by Pulse Oximetry 97 O2 Sat by Pulse Oximetry 97 Vital Signs Temp Pulse Resp BP Pulse Ox 97.9 F 73 16 161/87 97 04/28/18 19:32 04/28/18 19:32 04/28/18 19:32 04/28/18 19:32 04/28/18 19:32 Height: 5'2 Weight: 200 lbs NPO (# of Hours): MN Pain Scale: 0 - HEENT Pupil (Motor): Pupils equal, EOMI Mallampati: II Teeth: Normal Oral Opening: Greater than 3 - RED HAT OPEN STACK 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 LOC: Oriented RED HAT OPEN STACK 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 Motor: Normal RUE, Normal LUE, Normal RLE, Normal LLE, Normal Face RED HAT OPEN STACK 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 Sensory: Normal: RUE, LUE, RLE, LLE, Face - Cardiac Rhythm: Regular Murmur: None JVD: No Carotid Bruit: No - Pulmonary Breath Sounds: bilateral Clear Respiratory Effort: Symmetrical Anesthesia Assess/Plan ASA Score: 3 (HTN Astma TIA) Modified Gould Scale for Level of Consciousness: Cooperative, oriented, and tranquil Anesthetic Plan: General Monitoring Plan: Standard Monitors Recovery Plan: PACU (Discussed GA, agrees to proceed, will have stress test in AM)
[2018-04-30] MEDS: 0.9 % Sodium Chloride 1,000 ML IVC SCH (03:19)
[2018-04-30] MEDS ORDERED: Regadenoson 0.4 MG/5 ML SYRINGE IVP ONE (05:56)
[2018-04-30] MEDS: *HR* Heparin 5,000 UNIT/ML VIAL SQ SCH (06:20)
--- NOTE | 2018-04-30 08:13 | Electrocardiograph Report ---
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
[2018-04-30] MEDS: Pantoprazole 40 MG VIAL IVP SCH (09:12)
[2018-04-30] MEDS ORDERED: *HR* Propofol 200 MG/20 ML VIAL IVP ONE (10:18)
[2018-04-30] MEDS ORDERED: *HR* FentaNYL (PF) 100 MCG/2 ML VIAL ONE ×3 (10:18→13:06)
[2018-04-30] MEDS ORDERED: Lidocaine -MPF 2% 2 ML VIAL ONE (10:20)
--- NOTE | 2018-04-30 10:42 | Internal Med Progress Note ---
Date of Encounter: 04/30/18 Time of Encounter: 10:43 - Assessment and plan (1) Abdominal pain Current Visit: Yes Status: Acute Assessment and plan: presented with ABD pain that started after eating steak on day of admission. ABD CT showed moderate-sized hiatal hernia, postsurgical changes of previous abdominal wall mesh repair with distended bladder extending to the hernia defect. Evaluated by General Surgery who is planning surgical repair hernia defect. OR planned 04/30/18 Qualifiers: Abdominal location: unspecified location Qualified Code(s): R10.9 - Unspecified abdominal pain (2) Urinary frequency Current Visit: Yes Status: Acute Assessment and plan: likely from hernia pushing on bladder. UA not indicative of UTI. Cont mays catheter. (3) Hypertension Current Visit: No Status: Acute Assessment and plan: per hx. BP variable but acceptable. Not on BP medications at home. Monitor BP and add antihypertensive agent if needed. Qualifiers: Hypertension type: essential hypertension Qualified Code(s): I10 - Essential (primary) hypertension (4) Hyperlipemia Current Visit: No Status: Acute Assessment and plan: per hx. Cont home statin once med rec completed Qualifiers: Hyperlipidemia type: unspecified Qualified Code(s): E78.5 - Hyperlipidemia , unspecified (5) TAMAR (obstructive sleep apnea) Current Visit: Yes Status: Acute Assessment and plan: CPAP (6) Dementia Current Visit: Yes Status: Acute Assessment and plan: per hx. Mentation appears at baseline. Cont home medications. Qualifiers: Dementia type: unspecified type Dementia behavioral disturbance: without behavioral disturbance Qualified Code(s): F03.90 - Unspecified dementia without behavioral disturbance (7) DVT prophylaxis Current Visit: No Status: Acute Assessment and plan: SCD - Time Spent With Patient Total time spent is greater than 50% in coordination of care (as documented) at patient's floor/unit and/or counseling patient: - Subjective Interval history: Seen and examined at bedside; says he had an uneventful night. Still having some mild, lower ABD pain but overall improved - Constitutional Vitals: Temp Pulse Resp BP Pulse Ox 97.8 F 66 20 145/86 97 04/30/18 06:48 04/30/18 06:48 04/30/18 06:48 04/30/18 06:48 04/30/18 06:48 General appearance: Present: A&O X 2, A&O X 3, morbidly obese, pleasant, no acute distress - Head Head exam: Present: atraumatic, normocephalic - Eye Eye exam: Present: PERRL, conjuntiva pink, sclera anicteric Pupils: Present: PERRL - Neck Neck exam general surgery: Present: supple, trachea midline. Absent: lymphadenopathy - Respiratory Respiratory exam: Present: CTAB. Absent: accessory muscle use, rales, rhonchi, wheezes - Cardiovascular Cardiovascular exam: Present: RRR, +S1, +S2. Absent: diastolic murmur, gallop, rubs, systolic murmur - GI/Abdominal GI/Abdominal exam: Present: normal bowel sounds, soft, no peritoneal signs. Absent: distended, tenderness - Extremities Exam Extremities exam: Present: warm, radial pulses palpable and symmetrical. Absent : calf tenderness, cyanotic, pedal edema - Neurological Exam Neurological exam: Present: CN II-XII intact, oriented X3, no focal deficits. Absent: pronater drift, facial droop, speech deficit - Skin Skin exam: Present: dry, intact Internal Medicine: Result - Labs CBC & Chem 7: 04/29/18 05:57 04/29/18 05:57 - ABG Interpretation ABG results: PT/INR, D-dimer PT 11.6 Seconds (9.4-12.1) 04/28/18 19:53 - Impressions Impressions Echocardiogram 04/29/18 13:28 Impressions: LVEF 50%. Mild left ventricular diastolic dysfunction. Normal right ventricular structure and function. Severely dilated left atrium. Mild-moderate mitral regurgitation. Mild tricuspid regurgitation. No pulmonary hypertension. Left Ventricular Wall Motion: Rest Echo Findings All wall segments showed normal motion. Findings: Study Quality * Technically adequate exam. ECG Findings * Sinus bradycardia. Left Ventricle * LVEF 50%. * Mild left ventricular diastolic dysfunction. * Normal LV chamber size and wall thickness. Right Ventricle * Normal right ventricular structure and function. Left Atrium * Severely dilated left atrium. Right Atrium * Normal right atrial size. Mitral Valve * Normal mitral valve structure. * No mitral stenosis. * Mild-moderate mitral regurgitation. Aortic Valve * No aortic regurgitation. * Aortic valve not well visualized. * No aortic stenosis. Tricuspid Valve * Tricuspid valve not well visualized. * Mild tricuspid regurgitation. * Estimated RA pressure is 3 mmHg. * Estimated RVSP is 25 mmHg. * No pulmonary hypertension. Pulmonic Valve * Pulmonic valve is not well visualized. * No pulmonic stenosis. * No pulmonic regurgitation. Pulmonary Artery * Pulmonary artery not well visualized. Aorta * Normally sized aortic root. Pericardium * There is no pericardial effusion present. Interatrial Septum * No evidence of PFO by color Doppler. IVC * Normal IVC dimensions and inspiratory collapse. Consult Discharge Plan - Plan Referrals: Luis F Patrick MD [Primary Care Provider] -
[2018-04-30] MEDS ORDERED: MORPHINE SUL Oral CONC 10 MG/0.5 ML ORAL.SYG SL PRN (10:50)
[2018-04-30] MEDS ORDERED: Dexamethasone 4 MG/ML VIAL IVP ONE (10:50)
[2018-04-30] MEDS ORDERED: *HR* OxyCODONE Immed Rel 5 MG TABLET PO PRN (10:50)
[2018-04-30] MEDS ORDERED: *HR* HYDROmorphone 2 MG TABLET PO PRN (10:50)
[2018-04-30] MEDS ORDERED: Bupivacaine/EPI 1:200k 0.25%PF 30 ML VIAL ONE (10:54)
[2018-04-30] MEDS ORDERED: Ondansetron 4 MG/2 ML VIAL ONE (11:13)
--- NOTE | 2018-04-30 11:35 | Event Note ---
Date of Encounter: 04/30/18 Time of Encounter: 11:33 - Cardiology Event Note Pharmacologic nuclear stress test negative for ischemia or infarct, gated EF 63% . TTE resulted--EF 50%, normal wall motion. Severely dilated LA, mild-moderate MR, mild TR. Pt already taken down for surgery. From cardiac standpoint she is low to moderate risk for surgery given negative stress test and normal wall motion on echo with preserved EF. Carotid dopplers show stable disease, left 60-79%, right 40-59%. Recommend resuming Vytorin and resume ASA when okay with surgery. Cardiology signing off. Reconsult PRN.
[2018-04-30] MEDS ORDERED: EPHEDrine 50 MG/ML VIAL ONE (12:03)
[2018-04-30] MEDS ORDERED: *HR* Rocuronium Bromide 50 MG/5 ML VIAL ONE (12:41)
[2018-04-30] MEDS ORDERED: Neostigmine Methylsulfate 3 MG/3 ML SYRINGE ONE (14:23)
[2018-04-30] MEDS ORDERED: Ketorolac 30 MG/ML VIAL ONE (14:23)
[2018-04-30] MEDS ORDERED: *HR* Morphine 10 MG/ML VIAL ONE (14:33)
--- NOTE | 2018-04-30 14:57 | Operative Note ---
Date of procedure: 04/30/18 Pre-op diagnosis: ventral incisional hernia with prolapsing urinary bladder Post-op diagnosis: same Procedure: Exploratory celiotomy, lysis of adhesions (enduring approximately 90 minutes); removal of previous mesh prosthesis; partial omentectomy; suture closure of ventral incisional hernia Complications: None apparent Anesthesia: GETA Local Anesthetics: 0.25% Sensorcaine HCL with Epinephrine 1:200,000 SubQ (cc) ( 23 mL) Surgeon: Zeeshan Christianson Was there an language assistant present: No Estimated blood loss (cc): 150 IV fluids (cc): 1,600 Specimen: hernia sac and omentum Condition: stable Disposition: PACU Procedure in Detail: The patient was brought to the operating room where she was placed supine on the procedure table. The patient was appropriately identified as to person and procedure. The accuracy of this information was confirmed by the patient and procedure team. The patient was then intubated and anesthetized by [facility]. The abdomen was prepped and draped in usual sterile fashion. When examined under anesthesia, a ventral hernia was noted in the lower left abdomen corresponding to a previous Pfannenstiel incision. A midline incision was planned. Several milliliters of 0.25% bupivacaine with 1-200,000 units epinephrine was infiltrated into the proposed incision site. The skin was then incised with dissection extended to the fascia. Bleeding points were controlled with electrocautery. The fascia was divided in the midline. In the mid abdomen the previous mesh prosthesis was encountered. The abdominal wall was grasped, elevated and the mesh incised. Peritoneal contents were adherent to the mesh prosthesis but these adhesions were mobilized using sharp dissection. Eventually I was able to access the peritoneal cavity. Extended dissection/lysis of adhesions enduring approximately 90 minutes was necessary to free the intraperitoneal structures, reduce the prolapsing urinary bladder, and removed the previous mesh prosthesis. The mesh prosthesis had previously been placed to repair a midline ventral incisional hernia. This hernia repair appeared to be intact. The urinary bladder was prolapsing through a fascial defect measuring approximately 5 cm in diameter, left of midline. This fascial defect was suture repaired with interrupted 0 Vicryl. It was necessary to resect a portion of the omentum this was aided during the lysis of adhesions. This was accomplished with the aid of a Yecuris Ligasure disssector. When the lysis of adhesions was completed, the small bowel and colon were free of adhesions or potential internal hernias. The fascial defect in the anterior abdominal wall had been repaired. The midline incision was then closed in layers. 6 #2 Monosoft retention sutures were placed through and through the anterior abdominal wall. The fascia was then closed in the midline with interrupted [id number] 0 Vicryl. The subcutaneous tissue was reapproximated with running 3-0 Vicryl. The skin edges were approximated with santiago. The retention sutures were secured. A fluffy gauze dressing was applied. The patient was taken to recovery in stable condition. Needle, sponge , and instrument counts were correct at the close of the case.
[2018-04-30] MEDS ORDERED: Ringers Solution, Lactated 1,000 ML IVC SCH (15:00)
--- NOTE | 2018-04-30 15:24 | Anesthesia Evaluation Post Op ---
Date of Encounter: 04/30/18 Time of Encounter: 15:24 - Vital Signs Vital Signs: Vital Signs/O2 Sat, Most Current Temp Pulse Resp BP Pulse Ox 99.1 F 89 15 128/69 93 04/30/18 14:52 04/30/18 15:12 04/30/18 15:12 04/30/18 15:12 04/30/18 15:12 - Lungs Lungs: Clear Ascult./Percussion - Airway Airway: Non-obstructed - Cardiovascular Regular Rate - Mental Status Mental Status: Asleep without brisk response to light stimulation - Pain Pain Scale: 0 Pain Scale used: Numeric (1 - 10) - Nausea Vomiting Nausea Vomiting: Not Present - Hydration Hydration: NPO, Cornell catheter - Discharge PostOp Status: Transfer Patient to floor
[2018-04-30] MEDS ORDERED: *HR* HYDROmorphone 20 MG/20 ML PCA IVC PRN ×3 (15:45→16:27)
[2018-04-30] MEDS ORDERED: Naloxone 0.4 MG/ML INJ IVP PRN (15:45)
[2018-04-30] MEDS: Ondansetron 4 MG/2 ML VIAL IVP PRN (16:04)
[2018-04-30] MEDS: Ringers Solution, Lactated 1,000 ML IVC SCH (17:28)
[2018-04-30] MEDS ORDERED: Patient Taking Own Medication 1 EACH PO SCH (21:00)
[2018-04-30] MEDS ORDERED: (Ezetimibe/Simvastatin [Vytorin 10-40 Mg Tablet] 1 TA PO SCH (21:00)
[2018-04-30] MEDS: ELUXADOLINE 75 MG PO SCH (21:12)
[2018-05-01 05:32] LABS: Basophils % 0.1 %; Hematocrit 34.7 % (35.3-44.9); Hemoglobin 11.5 g/dL (11.5-15.4); Immature Granulocytes % 0.3 % (0-4); Lymphocytes # 0.4 K/mcL (0.6-4.6); Lymphocytes % 3.8 %; Mean Corpuscular HGB Conc 33.1 g/dL (31.6-35.5); Mean Corpuscular Hemoglobin 32.8 pg (28.0-33.3); Mean Corpuscular Volume 98.9 fL (83.0-100.0); Mean Platelet Volume 9.4 fL (9.4-12.4); Monocytes # 0.7 K/mcL (0.0-1.3); Monocytes % 6.8 %; Neutrophils # 8.6 K/mcL (1.6-8.9); Platelet Count 152 K/mcL (140-400); Red Blood Count 3.51 M/mcL (3.82-4.97); Red Cell Distribution Width 13.8 % (11.5-14.5)
[2018-05-01 05:51] LABS: BUN/Creatinine Ratio 14 (6-26); Blood Urea Nitrogen 8 mg/dL (8-23); Calcium 8.6 mg/dL (8.6-10.3); Carbon Dioxide 25 mEq/L (23-29); Chloride 108 mEq/L (98-107); Glucose 126 mg/dL (70-105); Osmolality,Calculated 292 (280-300); Potassium 3.8 mEq/L (3.5-5.1); Sodium 141 mEq/L (136-145); eGFR For African Americans > 60 (> 60); eGFR For Non-African Americans > 60 (> 60)
[2018-05-01] MEDS: Ringers Solution, Lactated 1,000 ML IVC SCH (07:00)
--- NOTE | 2018-05-01 08:15 | Internal Med Progress Note ---
Date of Encounter: 05/01/18 Time of Encounter: 08:11 - Assessment and plan (1) Ventral hernia without obstruction or gangrene Current Visit: Yes Status: Acute Assessment and plan: presented with ABD pain that started on day of admission. ABD CT showed moderate -sized hiatal hernia, postsurgical changes of previous abdominal wall mesh repair with distended bladder extending to the hernia defect. S/p ventral incisional hernia repair with lysis of adhesions and partial omentectomy per Dr. Christianson on 05/01/18. Discussed with Dr. Christianson and will advance diet as tolerated. Hold on bowel regimen at this time. Pain control with Dilaudid WEBSITE DESIGNER. (2) Urinary frequency Current Visit: Yes Status: Acute Assessment and plan: likely from hernia pushing on bladder. UA not indicative of UTI. Cont mays catheter. (3) High blood pressure Current Visit: Yes Status: Acute Assessment and plan: no dx HTN and not on BP medications at home. BP variable but acceptable ( suspect intermittent high blood pressure due to pain ). Monitor BP and add antihypertensive agent if needed. Qualifiers: Hypertension type: unspecified secondary hypertension Qualified Code(s): I15.9 - Secondary hypertension, unspecified; I15 - Secondary hypertension (4) Hyperlipemia Current Visit: No Status: Acute Assessment and plan: per hx. Cont home statin once med rec completed Qualifiers: Hyperlipidemia type: unspecified Qualified Code(s): E78.5 - Hyperlipidemia , unspecified (5) TAMAR (obstructive sleep apnea) Current Visit: Yes Status: Acute Assessment and plan: CPAP (6) Dementia Current Visit: Yes Status: Acute Assessment and plan: per hx. Mentation appears at baseline. Cont home medications. Qualifiers: Dementia type: unspecified type Dementia behavioral disturbance: without behavioral disturbance Qualified Code(s): F03.90 - Unspecified dementia without behavioral disturbance (7) DVT prophylaxis Current Visit: No Status: Acute Assessment and plan: SCD - Time Spent With Patient Total time spent is greater than 50% in coordination of care (as documented) at patient's floor/unit and/or counseling patient: - Subjective Interval history: Seen and examined at bedside. Resting in bed, appears comfortable. Complains of some abdominal pain at incision site. Says Dilaudid WEBSITE DESIGNER is helping. No BM but passing gas. No chest pain or shortness of breath. - Constitutional Vitals: Temp Pulse Resp BP Pulse Ox 98.2 F 68 15 164/85 93 05/01/18 04:32 05/01/18 04:32 05/01/18 04:32 05/01/18 04:32 05/01/18 04:32 General appearance: Present: A&O X 2, A&O X 3, morbidly obese, pleasant, no acute distress - Head Head exam: Present: atraumatic, normocephalic - Eye Eye exam: Present: PERRL, conjuntiva pink, sclera anicteric Pupils: Present: PERRL - Neck Neck exam general surgery: Present: supple, trachea midline. Absent: lymphadenopathy - Respiratory Respiratory exam: Present: CTAB. Absent: accessory muscle use, rales, rhonchi, wheezes - Cardiovascular Cardiovascular exam: Present: RRR, +S1, +S2. Absent: diastolic murmur, gallop, rubs, systolic murmur - GI/Abdominal GI/Abdominal exam: Present: diminished bowel sounds, normal bowel sounds, soft, tenderness, no peritoneal signs. Absent: distended Additional comments: ABD soft. Tenderness with palpation. Midline ABD incision covered with bulky dressing with scant shadowing. Hypoactive bowel sounds. - Extremities Exam Extremities exam: Present: warm, radial pulses palpable and symmetrical. Absent : calf tenderness, cyanotic, pedal edema - Neurological Exam Neurological exam: Present: CN II-XII intact, oriented X3, no focal deficits. Absent: pronater drift, facial droop, speech deficit - Skin Skin exam: Present: dry, intact Internal Medicine: Result - Labs CBC & Chem 7: 05/01/18 05:02 05/01/18 05:02 Labs: Short CBC 05/01/18 Range/Units 05:02 WBC 9.7 D (4.3-11.1) K/mcL Hgb 11.5 (11.5-15.4) g/dL Hct 34.7 L (35.3-44.9) % Plt Count 152 (140-400) K/mcL Neutrophils # 8.6 (1.6-8.9) K/mcL BMP 05/01/18 05:02 Sodium 141 Potassium 3.8 Chloride 108 H Carbon Dioxide 25 BUN 8 Creatinine 0.57 L Glucose 126 H Calcium 8.6 - ABG Interpretation ABG results: PT/INR, D-dimer PT 11.6 Seconds (9.4-12.1) 04/28/18 19:53 - Impressions Impressions Echocardiogram 04/29/18 13:28 Impressions: LVEF 50%. Mild left ventricular diastolic dysfunction. Normal right ventricular structure and function. Severely dilated left atrium. Mild-moderate mitral regurgitation. Mild tricuspid regurgitation. No pulmonary hypertension. Left Ventricular Wall Motion: Rest Echo Findings All wall segments showed normal motion. Findings: Study Quality * Technically adequate exam. ECG Findings * Sinus bradycardia. Left Ventricle * LVEF 50%. * Mild left ventricular diastolic dysfunction. * Normal LV chamber size and wall thickness. Right Ventricle * Normal right ventricular structure and function. Left Atrium * Severely dilated left atrium. Right Atrium * Normal right atrial size. Mitral Valve * Normal mitral valve structure. * No mitral stenosis. * Mild-moderate mitral regurgitation. Aortic Valve * No aortic regurgitation. * Aortic valve not well visualized. * No aortic stenosis. Tricuspid Valve * Tricuspid valve not well visualized. * Mild tricuspid regurgitation. * Estimated RA pressure is 3 mmHg. * Estimated RVSP is 25 mmHg. * No pulmonary hypertension. Pulmonic Valve * Pulmonic valve is not well visualized. * No pulmonic stenosis. * No pulmonic regurgitation. Pulmonary Artery * Pulmonary artery not well visualized. Aorta * Normally sized aortic root. Pericardium * There is no pericardial effusion present. Interatrial Septum * No evidence of PFO by color Doppler. IVC * Normal IVC dimensions and inspiratory collapse. - VTE Documentation of Mechanical Device: Intermittent pneumatic compression device Consult Discharge Plan - Plan Referrals: Zeeshan Christianson MD [Non-Partnered Physician] -
[2018-05-01] MEDS: Pantoprazole 40 MG VIAL IVP SCH (08:50)
[2018-05-01] MEDS: Aspirin Enteric Coated 325 MG Tablet PO SCH (08:50)
[2018-05-01] MEDS: ELUXADOLINE 75 MG PO SCH (08:51)
[2018-05-01] MEDS: Ondansetron 4 MG/2 ML VIAL IVP PRN ×4 (08:52→21:04)
[2018-05-01] MEDS ORDERED: Acetaminophen 325 MG TABLET PO PRN (13:05)
--- NOTE | 2018-05-01 13:14 | General Surgery Progress Note ---
Date of Encounter: 05/01/18 Time of Encounter: 13:08 Subjective Narrative: General Surgery - POD #1 Afebrile, vital signs stable - temperature 97.9, pulse 65, respirations 18, blood pressure 126/70. SPO2 on room air 94-95% Mild nausea but no emesis; mild to moderate incisional pain Lungs: Clear to auscultation Cardiac: Regular rate, no appreciable murmurs Abdomen: Soft, with active bowel sounds. The patient is passing flatus. Incisional tenderness as expected. Incision clean and dry; dressing removed. Urine output: 1725 mL port calendar day 04/30/18; approximate 600 mL so far today. Labs: White count 9.7, hemoglobin 11.5, hematocrit 34.7 Electrolytes, BUN, creatinine stable and within acceptable range Impression: Postoperative day 1, status post exploratory celiotomy, extended lysis of adhesions with repair of ventral incisional hernia and prolapsing urinary bladder. Acceptable postoperative status. Plan: Allow clears diet (initiated this AM), advance as tolerated Remove incision dressing, leave incision open to air as possible Remove Cornell catheter Discontinue GOVERNMENT RELATIONS DIRECTOR hydromorphone - oral narcotic analgesics Encourage incentive spirometry and activity OOB. Objective - Labs 05/01/18 05:02 05/01/18 05:02 - VTE Documentation of Mechanical Device: Intermittent pneumatic compression device Consult Discharge Plan - Plan Referrals: Zeeshan Christianson MD [Non-Partnered Physician] -
[2018-05-01] MEDS: *HR* OxyCODONE/APAP 5/325 TABLET PO PRN (14:35)
[2018-05-01] MEDS: D5% in 0.45% NACL 1,000 ML IVC SCH (14:58)
[2018-05-01] MEDS: *HR* OxyCODONE Immed Rel 5 MG TABLET PO PRN (20:50)
[2018-05-02] MEDS: *HR* OxyCODONE/APAP 5/325 TABLET PO PRN ×3 (00:59→17:02)
[2018-05-02] MEDS: *HR* OxyCODONE Immed Rel 5 MG TABLET PO PRN ×2 (04:30→20:32)
[2018-05-02] MEDS: D5% in 0.45% NACL 1,000 ML IVC SCH (04:31)
[2018-05-02] MEDS: Ondansetron 4 MG/2 ML VIAL IVP PRN ×3 (04:33→17:01)
[2018-05-02 04:49] LABS: Basophils % 0.3 %; Eosinophils # 0.1 K/mcL (0.0-0.6); Eosinophils % 0.6 %; Hematocrit 30.8 % (35.3-44.9); Hemoglobin 10.3 g/dL (11.5-15.4); Immature Granulocytes % 0.4 % (0-4); Lymphocytes % 12.3 %; Mean Corpuscular HGB Conc 33.4 g/dL (31.6-35.5); Mean Corpuscular Hemoglobin 33.1 pg (28.0-33.3); Mean Platelet Volume 9.7 fL (9.4-12.4); Monocytes # 0.7 K/mcL (0.0-1.3); Monocytes % 9.2 %; Nucleated Red Blood Cells 0.3 /100 WBC (0); Platelet Count 136 K/mcL (140-400); Red Blood Count 3.11 M/mcL (3.82-4.97); Red Cell Distribution Width 13.7 % (11.5-14.5); Segmented Neutrophils % 77.2 %
[2018-05-02 05:10] LABS: BUN/Creatinine Ratio 10 (6-26); Blood Urea Nitrogen 5 mg/dL (8-23); Calcium 8.3 mg/dL (8.6-10.3); Carbon Dioxide 26 mEq/L (23-29); Chloride 110 mEq/L (98-107); Glucose 120 mg/dL (70-105); Osmolality,Calculated 292 (280-300); Potassium 3.5 mEq/L (3.5-5.1); Sodium 142 mEq/L (136-145); eGFR For African Americans > 60 (> 60); eGFR For Non-African Americans > 60 (> 60)
--- NOTE | 2018-05-02 09:43 | Internal Med Progress Note ---
Date of Encounter: 05/02/18 Time of Encounter: 09:36 - Assessment and plan (1) Ventral hernia without obstruction or gangrene Current Visit: Yes Status: Acute Assessment and plan: presented with ABD pain that started on day of admission. ABD CT showed moderate -sized hiatal hernia, postsurgical changes of previous abdominal wall mesh repair with distended bladder extending to the hernia defect. S/p ventral incisional hernia repair with lysis of adhesions and partial omentectomy per Dr. Christianson on 05/01/18. Tolerating diet; cont to advance as tolerated. Pain control with oxyIR/percocet. Dr. Christianson following (2) Urinary frequency Current Visit: Yes Status: Acute Assessment and plan: likely from hernia pushing on bladder. UA not indicative of UTI. Cornell catheter removed. Monitor urinary output. (3) High blood pressure Current Visit: Yes Status: Acute Assessment and plan: no dx HTN and not on BP medications at home. BP variable but acceptable ( suspect intermittent high blood pressure due to pain ). Monitor BP and add antihypertensive agent if needed. Add PRN hydralazine. Qualifiers: Hypertension type: unspecified secondary hypertension Qualified Code(s): I15.9 - Secondary hypertension, unspecified; I15 - Secondary hypertension (4) Hyperlipemia Current Visit: No Status: Acute Assessment and plan: per hx. Cont home statin once med rec completed Qualifiers: Hyperlipidemia type: unspecified Qualified Code(s): E78.5 - Hyperlipidemia , unspecified (5) TAMAR (obstructive sleep apnea) Current Visit: Yes Status: Acute Assessment and plan: CPAP (6) Dementia Current Visit: Yes Status: Acute Assessment and plan: per hx. Mentation appears at baseline. Cont home medications. Qualifiers: Dementia type: unspecified type Dementia behavioral disturbance: without behavioral disturbance Qualified Code(s): F03.90 - Unspecified dementia without behavioral disturbance (7) DVT prophylaxis Current Visit: No Status: Acute Assessment and plan: SCD - Time Spent With Patient Total time spent is greater than 50% in coordination of care (as documented) at patient's floor/unit and/or counseling patient: - Subjective Interval history: Seen and examined at bedside. Sitting up in chair, eating breakfast. Complains of some mild abdominal tenderness but overall says she feels well. Not passing as much gases yesterday but she did report having a small BM. Cornell removed and voiding without difficulty. No chest pain or shortness of breath. at bedside and updated. - Constitutional Vitals: Temp Pulse Resp BP Pulse Ox 98.5 F 82 15 159/88 95 05/02/18 06:45 05/02/18 06:45 05/02/18 06:45 05/02/18 06:45 05/02/18 06:45 General appearance: Present: A&O X 2, A&O X 3, morbidly obese, pleasant, no acute distress - Head Head exam: Present: atraumatic, normocephalic - Eye Eye exam: Present: PERRL, conjuntiva pink, sclera anicteric Pupils: Present: PERRL - Neck Neck exam general surgery: Present: supple, trachea midline. Absent: lymphadenopathy - Respiratory Respiratory exam: Present: CTAB. Absent: accessory muscle use, rales, rhonchi, wheezes - Cardiovascular Cardiovascular exam: Present: RRR, +S1, +S2. Absent: diastolic murmur, gallop, rubs, systolic murmur - GI/Abdominal GI/Abdominal exam: Present: normal bowel sounds, soft, no peritoneal signs. Absent: distended, tenderness Additional comments: soft, obeses, midline ABD incision with santiago and stay sutures intact. Mild erythremia and incision site. No active drainage. - Extremities Exam Extremities exam: Present: warm, radial pulses palpable and symmetrical. Absent : calf tenderness, cyanotic, pedal edema - Neurological Exam Neurological exam: Present: CN II-XII intact, oriented X3, no focal deficits. Absent: pronater drift, facial droop, speech deficit - Skin Skin exam: Present: dry, intact Internal Medicine: Result - Labs CBC & Chem 7: 05/02/18 04:21 05/02/18 04:21 Labs: Short CBC 05/02/18 Range/Units 04:21 WBC 7.7 (4.3-11.1) K/mcL Hgb 10.3 L (11.5-15.4) g/dL Hct 30.8 L (35.3-44.9) % Plt Count 136 L (140-400) K/mcL Neutrophils # 6.0 (1.6-8.9) K/mcL BMP 05/02/18 04:21 Sodium 142 Potassium 3.5 Chloride 110 H Carbon Dioxide 26 BUN 5 L Creatinine 0.52 L Glucose 120 H Calcium 8.3 L - ABG Interpretation ABG results: PT/INR, D-dimer PT 11.6 Seconds (9.4-12.1) 04/28/18 19:53 - VTE Documentation of Mechanical Device: Intermittent pneumatic compression device Consult Discharge Plan - Plan Referrals: Zeeshan Christianson MD [Non-Partnered Physician] -
[2018-05-02] MEDS: Aspirin Enteric Coated 325 MG Tablet PO SCH (10:15)
[2018-05-02] MEDS: Pantoprazole 40 MG VIAL IVP SCH (10:15)
--- NOTE | 2018-05-02 13:34 | General Surgery Progress Note ---
Date of Encounter: 05/02/18 Time of Encounter: 13:20 Subjective Narrative: General Surgery - POD#2 Patient feeling well; still complaining of some mild nausea but no emesis. Abdominal pain/incision pain controlled with oral meds. Maximum temperature 99.1; hemodynamically stable - pulse 75, respirations 15 , blood pressure 155/83. SPO2 on room air 95-96% Lungs: Clear to auscultation; no obvious abdominal pain on deep inspiration Abdomen: Soft, incisional tenderness as expected; active bowel sounds. Incision intact; no drainage. No detected fascial defects. Tolerating full liquid diet; no BM Cornell catheter removed, patient able to void. Urine output: 400 mL so far today Laboratories: White count 7.7, hemoglobin has fallen to 10.3 with hematocrit 30.8 - likely dilution Platelet count 136,000 Electrolytes, BUN, creatinine stable and within normal limits. Pathology: Pending Impression: Postoperative day #2; status post exploratory celiotomy with extended lysis of adhesions with suture repair of ventral incisional hernia. Prolapsing urinary bladder reduced with the hernia repair Minimal postoperative nausea. Tolerating full liquid diet without emesis. Acceptable postoperative status. Objective Vital Signs - Last 8 Hours Temp Pulse Resp BP Pulse Ox 05/02/18 09:55 98.0 F 75 15 155/83 96 05/02/18 06:45 98.5 F 82 15 159/88 95 Intake and Output 05/01/18 05/02/18 05/02/18 23:59 07:59 15:59 Intake Total 480 / 480 1500 / 1500 600 / 600 Output Total 0 / 0 400 / 400 0 / 0 Balance 480 / 480 1100 / 1100 600 / 600 Intake: IV Fluids 1000 / 1000 D5% And 0.45% Nacl 1000 Ml Bag 1000 / 1000 1,000 ML @ 75 mls/hr IVC . [id number] HARESH Rx#:[id number] Oral 480 / 480 500 / 500 600 / 600 Output: Urine 0 / 0 400 / 400 0 / 0 Other: Meal Breakfast # Voids 2 - Labs 05/02/18 04:21 05/02/18 04:21 Diabetes panel 05/02/18 Range/Units 04:21 Sodium 142 (136-145) mEq/L Potassium 3.5 (3.5-5.1) mEq/L Chloride 110 H (98-107) mEq/L Carbon Dioxide 26 (23-29) mEq/L BUN 5 L (8-23) mg/dL Creatinine 0.52 L (0.60-1.20) mg/dL Glucose 120 H (70-105) mg/dL Calcium 8.3 L (8.6-10.3) mg/dL Calcium panel 05/02/18 Range/Units 04:21 Calcium 8.3 L (8.6-10.3) mg/dL Pituitary panel 05/02/18 Range/Units 04:21 Sodium 142 (136-145) mEq/L Potassium 3.5 (3.5-5.1) mEq/L Chloride 110 H (98-107) mEq/L Carbon Dioxide 26 (23-29) mEq/L BUN 5 L (8-23) mg/dL Creatinine 0.52 L (0.60-1.20) mg/dL Glucose 120 H (70-105) mg/dL Calcium 8.3 L (8.6-10.3) mg/dL Adrenal panel 05/02/18 Range/Units 04:21 Sodium 142 (136-145) mEq/L Potassium 3.5 (3.5-5.1) mEq/L Chloride 110 H (98-107) mEq/L Carbon Dioxide 26 (23-29) mEq/L BUN 5 L (8-23) mg/dL Creatinine 0.52 L (0.60-1.20) mg/dL Glucose 120 H (70-105) mg/dL Calcium 8.3 L (8.6-10.3) mg/dL - VTE Documentation of Mechanical Device: Intermittent pneumatic compression device Consult Discharge Plan - Plan Referrals: Zeeshan Christianson MD [Non-Partnered Physician] -
[2018-05-03] MEDS: Ondansetron 4 MG/2 ML VIAL IVP PRN ×3 (03:44→20:39)
[2018-05-03] MEDS: *HR* OxyCODONE/APAP 5/325 TABLET PO PRN ×3 (03:49→20:40)
[2018-05-03 05:36] LABS: Basophils % 0.3 %; Eosinophils # 0.1 K/mcL (0.0-0.6); Eosinophils % 1.9 %; Hematocrit 32.7 % (35.3-44.9); Hemoglobin 10.8 g/dL (11.5-15.4); Immature Granulocytes % 0.7 % (0-4); Lymphocytes # 0.8 K/mcL (0.6-4.6); Lymphocytes % 10.9 %; Mean Platelet Volume 9.6 fL (9.4-12.4); Monocytes # 0.6 K/mcL (0.0-1.3); Monocytes % 7.9 %; Neutrophils # 5.8 K/mcL (1.6-8.9); Platelet Count 160 K/mcL (140-400); Red Blood Count 3.27 M/mcL (3.82-4.97); Red Cell Distribution Width 13.5 % (11.5-14.5); Segmented Neutrophils % 78.3 %
[2018-05-03 05:53] LABS: Magnesium 1.8 mg/dL (1.6-2.6); Phosphorous 2.4 mg/dL (2.7-4.5); Potassium 3.2 mEq/L (3.5-5.1)
[2018-05-03] MEDS: Aspirin Enteric Coated 325 MG Tablet PO SCH (08:25)
[2018-05-03] MEDS: Pantoprazole 40 MG VIAL IVP SCH (08:27)
[2018-05-03] MEDS: *HR* OxyCODONE Immed Rel 5 MG TABLET PO PRN (08:27)
--- NOTE | 2018-05-03 08:52 | Internal Med Progress Note ---
Date of Encounter: 05/03/18 Time of Encounter: 08:49 - Assessment and plan (1) Ventral hernia without obstruction or gangrene Current Visit: Yes Status: Acute Assessment and plan: presented with ABD pain that started on day of admission. ABD CT showed moderate -sized hiatal hernia, postsurgical changes of previous abdominal wall mesh repair with distended bladder extending to the hernia defect. S/p exploratory celiotomy with extended lysis of adhesions with suture repair of ventral incisional hernia repair per Dr. Christianson on 05/01/18. Tolerating regular diet. Pain control with oxyIR/percocet. Dr. Christianson following (2) Urinary frequency Current Visit: Yes Status: Acute Assessment and plan: secondary to prolapsed bladder; prolapsing urinary bladder reduced with the hernia repair per Dr. Christianson on 05/01/18. Cornell catheter removed. Voiding without difficulty. Monitor urinary output. (3) High blood pressure Current Visit: Yes Status: Acute Assessment and plan: no dx HTN and not on BP medications at home. BP variable but acceptable ( suspect intermittent high blood pressure due to pain ). Monitor BP and add antihypertensive agent if needed. PRN hydralazine for SBP greater than 180 Qualifiers: Hypertension type: unspecified secondary hypertension Qualified Code(s): I15.9 - Secondary hypertension, unspecified; I15 - Secondary hypertension (4) Hyperlipemia Current Visit: No Status: Acute Assessment and plan: per hx. Cont home statin once med rec completed Qualifiers: Hyperlipidemia type: unspecified Qualified Code(s): E78.5 - Hyperlipidemia , unspecified (5) TAMAR (obstructive sleep apnea) Current Visit: Yes Status: Acute Assessment and plan: CPAP (6) Dementia Current Visit: Yes Status: Acute Assessment and plan: per hx. Mentation appears at baseline. Cont home medications. Qualifiers: Dementia type: unspecified type Dementia behavioral disturbance: without behavioral disturbance Qualified Code(s): F03.90 - Unspecified dementia without behavioral disturbance (7) DVT prophylaxis Current Visit: No Status: Acute Assessment and plan: SCD - Time Spent With Patient Total time spent is greater than 50% in coordination of care (as documented) at patient's floor/unit and/or counseling patient: - Subjective Interval history: Seen and examined at bedside. Sitting up in chair. She had uneventful night. Having mild abdominal pain but tolerable. When necessary pain medicine is helping control pain. Passing gas but no bowel movement in the last 24 hours. Tolerating regular diet. Voiding without difficulty. No dysuria. No chest pain or shortness of breath. - Constitutional Vitals: Temp Pulse Resp BP Pulse Ox 98.2 F 71 15 153/86 94 05/03/18 06:54 05/03/18 06:54 05/03/18 06:54 05/03/18 06:54 05/03/18 06:54 General appearance: Present: A&O X 2, A&O X 3, morbidly obese, pleasant, no acute distress - Head Head exam: Present: atraumatic, normocephalic - Eye Eye exam: Present: PERRL, conjuntiva pink, sclera anicteric Pupils: Present: PERRL - Neck Neck exam general surgery: Present: supple, trachea midline. Absent: lymphadenopathy - Respiratory Respiratory exam: Present: CTAB. Absent: accessory muscle use, rales, rhonchi, wheezes - Cardiovascular Cardiovascular exam: Present: RRR, +S1, +S2. Absent: diastolic murmur, gallop, rubs, systolic murmur - GI/Abdominal GI/Abdominal exam: Present: normal bowel sounds, soft, tenderness, no peritoneal signs. Absent: distended Additional comments: mid-line ABD incision with santiago and stay sutures intact. Mild erythema. No drainage. Does not appear infected. - Extremities Exam Extremities exam: Present: warm, radial pulses palpable and symmetrical. Absent : calf tenderness, cyanotic, pedal edema - Neurological Exam Neurological exam: Present: CN II-XII intact, oriented X3, no focal deficits. Absent: pronater drift, facial droop, speech deficit - Skin Skin exam: Present: dry, intact Internal Medicine: Result - Labs CBC & Chem 7: 05/03/18 04:45 05/03/18 04:45 Labs: Short CBC 05/03/18 Range/Units 04:45 WBC 7.4 (4.3-11.1) K/mcL Hgb 10.8 L (11.5-15.4) g/dL Hct 32.7 L (35.3-44.9) % Plt Count 160 (140-400) K/mcL Neutrophils # 5.8 (1.6-8.9) K/mcL BMP 05/03/18 04:45 Potassium 3.2 L - ABG Interpretation ABG results: PT/INR, D-dimer PT 11.6 Seconds (9.4-12.1) 04/28/18 19:53 - VTE Documentation of Mechanical Device: Intermittent pneumatic compression device Consult Discharge Plan - Plan Referrals: Zeeshan Christianson MD [Non-Partnered Physician] -
--- NOTE | 2018-05-03 11:22 | General Surgery Progress Note ---
Date of Encounter: 05/03/18 Time of Encounter: 11:14 Subjective Patient reports: no new complaints, tolerating a regular diet Narrative: General Surgery - P:OD #3 Patient continues to feel well; voicing no complaints. Remains afebrile, 98.5; pulse 61, respirations 15, blood pressure 97/65 - 161/88 Patient has been active at bed, ambulatory and dissipating in physical therapy Lungs: Clear bilaterally; no obvious abdominal pain and deep inspiration Cardiac: Regular rate, no appreciable murmur Abdomen: Soft with minimal incisional tenderness. The incision is intact, no drainage. No detected fascial defects. Active bowel sounds; no peritoneal signs or rebound. No flatus or BM yet Cornell out; patient able to void; urine output 400 mL for 05/02/18; 500 mL so far today. Pathology: The omentum is notable for benign lobulated mature adipose tissue; the hernia sac composed of benign fibrovascular and adipose tissue A single benign lymph node is also described. Labs: White count 7.4, hemoglobin has increased to 10.8 with hematocrit 32.7; platelet count 160,000; differential within normal limits. Potassium 3.2- supplements have been prescribed Phosphorus 2.4 Impression: Postoperative day #3 status post exploratory celiotomy lysis of adhesions and suture repair of ventral incisional hernia with prolapsing urinary bladder Acceptable postoperative status. Objective Vital Signs - Last 8 Hours Temp Pulse Resp BP Pulse Ox 05/03/18 10:26 98.5 F 61 15 97/65 99 05/03/18 06:54 98.2 F 71 15 153/86 94 05/03/18 03:31 98.3 F 81 15 161/88 93 Intake and Output 05/02/18 05/03/18 05/03/18 23:59 07:59 15:59 Intake Total 120 / 120 0 / 0 200 / 200 Output Total 400 / 400 100 / 100 Balance 120 / 120 -400 / -400 100 / 100 Intake: Oral 120 / 120 0 / 0 200 / 200 Output: Urine 400 / 400 100 / 100 Other: Meal Dinner Breakfast Percent of Meal Consumed 25% 50% Weight 90.3 kg Patient Weight 05/03/18 23:59 Weight 90.3 kg - Labs 05/03/18 04:45 05/03/18 04:45 Diabetes panel 05/03/18 Range/Units 04:45 Potassium 3.2 L (3.5-5.1) mEq/L Calcium panel 05/03/18 Range/Units 04:45 Phosphorus 2.4 L (2.7-4.5) mg/dL Pituitary panel 05/03/18 Range/Units 04:45 Potassium 3.2 L (3.5-5.1) mEq/L Adrenal panel 05/03/18 Range/Units 04:45 Potassium 3.2 L (3.5-5.1) mEq/L - VTE Documentation of Mechanical Device: Intermittent pneumatic compression device Consult Discharge Plan - Plan Referrals: Zeeshan Christianson MD [Non-Partnered Physician] -
[2018-05-04] MEDS: *HR* OxyCODONE/APAP 5/325 TABLET PO PRN (02:48)
--- NOTE | 2018-05-04 08:25 | Internal Med Progress Note ---
Date of Encounter: 05/04/18 Time of Encounter: 08:23 - Assessment and plan (1) Ventral hernia without obstruction or gangrene Current Visit: Yes Status: Acute Assessment and plan: presented with ABD pain that started on day of admission. ABD CT showed moderate -sized hiatal hernia, postsurgical changes of previous abdominal wall mesh repair with distended bladder extending to the hernia defect. S/p exploratory celiotomy with extended lysis of adhesions with suture repair of ventral incisional hernia repair per Dr. Christianson on 05/01/18. Tolerating regular diet. Pain control with oxyIR/percocet. Dr. Christianson following (2) Prolapsed bladder Current Visit: Yes Status: Acute Assessment and plan: presented with ABD pain and urinary frequency. Secondary to prolapsed bladder and ventral hernia defect. Prolapsing urinary bladder reduced with the hernia repair per Dr. Christianson on 05/01/18. Cornell catheter removed. Voiding without difficulty. Monitor urinary output. (3) High blood pressure Current Visit: Yes Status: Acute Assessment and plan: no dx HTN and not on BP medications at home. BP variable but acceptable ( suspect intermittent high blood pressure due to pain ). Monitor BP and add antihypertensive agent if needed. PRN hydralazine for SBP greater than 180. Cont to transient/intermittent elevated BPs on 05/04 review. Continue to hold on initiating antihypertensive agent as I suspect elevated BP secondary to pain. Trend BP and initiate BP medication if BP continues to rise and stay elevated. Qualifiers: Hypertension type: unspecified secondary hypertension Qualified Code(s): I15.9 - Secondary hypertension, unspecified; I15 - Secondary hypertension (4) Hyperlipemia Current Visit: No Status: Acute Assessment and plan: per hx. Cont home statin once med rec completed Qualifiers: Hyperlipidemia type: unspecified Qualified Code(s): E78.5 - Hyperlipidemia , unspecified (5) TAMAR (obstructive sleep apnea) Current Visit: Yes Status: Acute Assessment and plan: CPAP (6) Dementia Current Visit: Yes Status: Acute Assessment and plan: per hx. Mentation appears at baseline. Cont home medications. Qualifiers: Dementia type: unspecified type Dementia behavioral disturbance: without behavioral disturbance Qualified Code(s): F03.90 - Unspecified dementia without behavioral disturbance (7) DVT prophylaxis Current Visit: No Status: Acute Assessment and plan: SCD - Time Spent With Patient Total time spent is greater than 50% in coordination of care (as documented) at patient's floor/unit and/or counseling patient: - Subjective Interval history: Seen and examined at bedside. Sitting up on edge of bed. Says she feels "okay" today. Having some mild nausea and didn't eat much yesterday. No flatus or BM today. Reports mild ABD pain which is controlled with PRN pain medication. at bedside and updated. - Constitutional Vitals: Temp Pulse Resp BP Pulse Ox 98.1 F 90 15 167/96 95 05/04/18 07:47 05/04/18 07:47 05/04/18 07:47 05/04/18 07:47 05/04/18 07:47 General appearance: Present: A&O X 2, A&O X 3, morbidly obese, pleasant, no acute distress - Head Head exam: Present: atraumatic, normocephalic - Eye Eye exam: Present: PERRL, conjuntiva pink, sclera anicteric Pupils: Present: PERRL - Neck Neck exam general surgery: Present: supple, trachea midline. Absent: lymphadenopathy - Respiratory Respiratory exam: Present: CTAB. Absent: accessory muscle use, rales, rhonchi, wheezes - Cardiovascular Cardiovascular exam: Present: RRR, +S1, +S2. Absent: diastolic murmur, gallop, rubs, systolic murmur - GI/Abdominal GI/Abdominal exam: Present: normal bowel sounds, soft, tenderness, no peritoneal signs. Absent: distended Additional comments: Midline ABD incision with stay sutures and santiago intact. Scant sersoang drainage. No erythema, no s/sx infection - Extremities Exam Extremities exam: Present: warm, radial pulses palpable and symmetrical. Absent : calf tenderness, cyanotic, pedal edema - Neurological Exam Neurological exam: Present: CN II-XII intact, oriented X3, no focal deficits. Absent: pronater drift, facial droop, speech deficit - Skin Skin exam: Present: dry, intact Internal Medicine: Result - Labs CBC & Chem 7: 05/03/18 04:45 05/03/18 04:45 - ABG Interpretation ABG results: PT/INR, D-dimer PT 11.6 Seconds (9.4-12.1) 04/28/18 19:53 - VTE Documentation of Mechanical Device: Intermittent pneumatic compression device Consult Discharge Plan - Plan Referrals: Zeeshan Christianson MD [Non-Partnered Physician] -
[2018-05-04] MEDS: Aspirin Enteric Coated 325 MG Tablet PO SCH (09:45)
[2018-05-04] MEDS: Pantoprazole 40 MG VIAL IVP SCH (09:45)
--- NOTE | 2018-05-04 10:46 | General Surgery Progress Note ---
Date of Encounter: 05/04/18 Time of Encounter: 10:42 Subjective Patient reports: no new complaints Narrative: General Surgery - POD #4 Patient resting comfortably on my arrival and bedside; voicing no new complaints. Indicates postoperative incisional pain is controlle Nausea and anorexia yesterday but feeling much improved today. Consumed most of breakfast Remains afebrile, currently 98.9, pulse 73-90, respirations 15, blood pressure early this morning 167/96; currently 107/65. Lungs: Clear bilaterally, no obvious abdominal pain to deep inspiration; SPO2 on room air 95-96% Abdomen: Soft, minimal amada-incisional tenderness. No obvious intra- abdominal masses, no peritoneal signs or rebound. Active bowel sounds. Patient has passed flatus but no BM Urine output approximately 820 mL for the last 24 hours Impression: Postoperative day #4; status post exploratory celiotomy, extended lysis of adhesions with open suture repair recurrent ventral incisional hernia with prolapsing urinary bladder. Acceptable postoperative status. Objective Vital Signs - Last 8 Hours Temp Pulse Resp BP Pulse Ox 05/04/18 10:31 98.9 F 83 15 107/65 96 05/04/18 07:47 98.1 F 90 15 167/96 95 05/04/18 03:18 98.2 F 73 16 125/74 92 Intake and Output 05/03/18 05/04/18 05/04/18 23:59 07:59 15:59 Intake Total 360 / 360 360 / 360 0 / 0 Output Total 120 / 120 200 / 200 Balance 240 / 240 160 / 160 0 / 0 Intake: Oral 360 / 360 360 / 360 0 / 0 Output: Urine 120 / 120 200 / 200 Other: # Voids 3 1 Weight 90.5 kg Patient Weight 05/04/18 23:59 Weight 90.5 kg - Labs 05/03/18 04:45 05/03/18 04:45 - VTE Documentation of Mechanical Device: Intermittent pneumatic compression device Consult Discharge Plan - Plan Referrals: Zeeshan Christianson MD [Non-Partnered Physician] -
[2018-05-04] MEDS: Ondansetron 4 MG/2 ML VIAL IVP PRN (20:03)
[2018-05-05 07:17] VITALS: BP 113/79
[2018-05-05 07:19] LABS: Hematocrit 33.4 % (35.3-44.9); Mean Corpuscular HGB Conc 32.9 g/dL (31.6-35.5); Mean Corpuscular Hemoglobin 32.5 pg (28.0-33.3); Mean Corpuscular Volume 98.8 fL (83.0-100.0); Mean Platelet Volume 9.7 fL (9.4-12.4); Platelet Count 191 K/mcL (140-400); Red Blood Count 3.38 M/mcL (3.82-4.97); Red Cell Distribution Width 13.2 % (11.5-14.5)
[2018-05-05 07:34] LABS: BUN/Creatinine Ratio 18 (6-26); Blood Urea Nitrogen 10 mg/dL (8-23); Calcium 8.7 mg/dL (8.6-10.3); Carbon Dioxide 31 mEq/L (23-29); Chloride 105 mEq/L (98-107); Glucose 92 mg/dL (70-105); Osmolality,Calculated 295 (280-300); Potassium 3.6 mEq/L (3.5-5.1); Sodium 143 mEq/L (136-145); eGFR For African Americans > 60 (> 60); eGFR For Non-African Americans > 60 (> 60)
--- NOTE | 2018-05-05 08:41 | Discharge Summary ---
- NOTES TO OUTPATIENT PROVIDER Notes to Outpatient Provider: Recommend follow-up within one week for BP recheck Date of Encounter: 05/05/18 Time of Encounter: 08:34 - Discharge Diagnosis (1) Ventral hernia without obstruction or gangrene Priority: Primary Status: Acute Assessment and Plan: presented with ABD pain that started on day of admission. ABD CT showed moderate -sized hiatal hernia, postsurgical changes of previous abdominal wall mesh repair with distended bladder extending to the hernia defect. S/p exploratory celiotomy with extended lysis of adhesions with suture repair of ventral incisional hernia repair per Dr. Christianson on 05/01/18. Tolerating regular diet. Pain control with oxyIR/percocet. Dr. Christianson following (2) Prolapsed bladder Priority: Primary Status: Acute Assessment and Plan: presented with ABD pain and urinary frequency. Secondary to prolapsed bladder and ventral hernia defect. Prolapsing urinary bladder reduced with the hernia repair per Dr. Christianson on 05/01/18. Cornell catheter removed. Voiding without difficulty. Monitor urinary output. (3) High blood pressure Priority: Primary Status: Acute Assessment and Plan: no dx HTN and not on BP medications at home. BP variable but acceptable ( suspect intermittent high blood pressure due to pain ). Hold on initiating antihypertensive agent as I suspect elevated BP secondary to pain. Recommend follow-up with PCP within one week for BP recheck Qualifiers: Hypertension type: unspecified secondary hypertension Qualified Code(s): I15.9 - Secondary hypertension, unspecified; I15 - Secondary hypertension (4) Hyperlipemia Priority: Primary Status: Acute Assessment and Plan: per hx. Cont home statin once med rec completed Qualifiers: Hyperlipidemia type: unspecified Qualified Code(s): E78.5 - Hyperlipidemia , unspecified (5) TAMAR (obstructive sleep apnea) Priority: Primary Status: Acute Assessment and Plan: CPAP (6) Dementia Priority: Primary Status: Acute Assessment and Plan: per hx. Mentation appears at baseline. Cont home medications. Qualifiers: Dementia type: unspecified type Dementia behavioral disturbance: without behavioral disturbance Qualified Code(s): F03.90 - Unspecified dementia without behavioral disturbance Hospital course: Please see assessment and plan for Hospital course Discharge discussed with: patient (Seen and examined at bedside. Laying in bed , appears comfortable. She is dressed and ready for discharge. Has mild abdominal pain. Tolerating regular diet and reports having BM yesterday. Discussed with Dr. christianson and chelsea to discharge home with follow-up in 3-4 days ) - Time Spent with Patient Total time spent providing and/or coordinating discharge services: - Discharge Medications Prescriptions: OxyCODONE/APAP 5/325 [Percocet 5/325 MG] 1 each PO BID PRN 7 Days #14 tablet PRN Reason: pain not relieved by Tylenol Polyethylene Glycol 3350 [MiraLAX] 17 gm PO DAILY #30 powd.pack Home Medications: Albuterol Sulfate [Proair Hfa] 2 puff IH Q4-6H PRN 06/28/16 [History] Aspirin Enteric Coated [Aspirin EC] 325 mg PO DAILY 06/28/16 [History] Citalopram [CeleXA] 20 mg PO DAILY 06/28/16 [History] Ezetimibe/Simvastatin [Vytorin 10-40 mg Tablet] 1 tab PO DAILY 06/28/16 [History ] Gluc/Cecilio-MSM#1/C/Zaid/Dawit/Bor [Osteo Bi-Flex Caplet] 1 tab PO DAILY 06/28/16 [ History] Dicyclomine [Bentyl] 20 mg PO TID 03/03/18 [History] Eluxadoline [Viberzi] 75 mg PO BID 03/03/18 [History] Memantine HCl 10 mg PO BID 03/03/18 [History] Acetaminophen [Tylenol] 1,000 mg PO Q6HR #90 tablet 03/28/18 [Rx] Cholecalciferol (D-3) [Vitamin D] 4,000 unit PO DAILY 04/29/18 [History] [place]-3/Dha/Epa/Fish Oil [Fish Oil 1,000 mg Softgel] 1 cap PO DAILY 04/29/18 [ History] OxyCODONE/APAP 5/325 [Percocet 5/325 MG] 1 each PO BID PRN 7 Days #14 tablet 03/19 [Rx] Polyethylene Glycol 3350 [MiraLAX] 17 gm PO DAILY #30 powd.pack 05/05/18 [Rx] Allergies/Adverse Reactions: 3 Allergy/AdvReac Type Severity Reaction Status Date / Time lisinopril Allergy Swelling Verified 04/29/18 11:34 of Lip/Tongue/Throat Date of admission: 05/01/18 11:06 Primary care physician: Luis F Patrick MD Discharging clinician: Maria Elena Baron Anticipated date of discharge: 05/05/18 - Constitutional Vitals: Temp Pulse Resp BP Pulse Ox 98.1 F 73 16 113/79 93 05/05/18 06:40 05/05/18 06:40 05/05/18 06:40 05/05/18 06:40 05/05/18 06:40 General appearance: Present: A&O X 2, A&O X 3, morbidly obese, pleasant, no acute distress - Head Head exam: Present: atraumatic, normocephalic - Eye Eye exam: Present: PERRL, conjuntiva pink, sclera anicteric Pupils: Present: PERRL - Neck Neck exam general surgery: Present: supple, trachea midline. Absent: lymphadenopathy - Respiratory Respiratory exam: Present: CTAB. Absent: accessory muscle use, rales, rhonchi, wheezes - Cardiovascular Cardiovascular exam: Present: RRR, +S1, +S2. Absent: diastolic murmur, gallop, rubs, systolic murmur - GI/Abdominal GI/Abdominal exam: Present: normal bowel sounds, soft, tenderness, no peritoneal signs. Absent: distended Additional comments: ABD midline incision with stay sutures and santiago intact. No erythema. No drainage - Extremities Exam Extremities exam: Present: warm, radial pulses palpable and symmetrical. Absent : calf tenderness, cyanotic, pedal edema - Neurological Exam Neurological exam: Present: CN II-XII intact, oriented X3, no focal deficits. Absent: pronater drift, facial droop, speech deficit - Skin Skin exam: Present: dry, intact - Patient Status Disposition: Home, Self-Care Condition: Good Functional capacity at discharge: uses cane/walker Overall status at discharge: patient is progressing back to baseline - Discharge Instructions Instructions: Oxycodone/Acetaminophen (By mouth), Ventral Hernia (DC) Follow Up With: Zeeshan Christianson MD [Non-Partnered Physician] - (Please call the office for follow-up appt. Dr. Christianson would likle to se you in his office or Saturday of this week) - Diet and Activity Activity: increase activity as tolerated Diet: advance to your usual diet - VTE Documentation of Mechanical Device: Intermittent pneumatic compression device
[2018-05-05] MEDS: Aspirin Enteric Coated 325 MG Tablet PO SCH (09:12)
== END 2018-05-05 10:51 | disposition home or self-care (01) | DRG 337 ==
LOC: EMEROO 19:26 → 3ANU 19:26
PROVIDERS: ADMIT Registered Nurse; ATTEND Internal Medicine

== ENCOUNTER 2018-07-07 15:24 | Observation (INO) ==
[2018-07-07] MEDS ORDERED: 0.9 % Sodium Chloride 1,000 ML IVC ONE (15:50)
[2018-07-07 16:15] LABS: Basophils % 0.3 %; Eosinophils # 0.2 K/mcL (0.0-0.6); Hematocrit 36.9 % (35.3-44.9); Hemoglobin 12.2 g/dL (11.5-15.4); Immature Granulocytes % 0.3 % (0-4); Lymphocytes # 1.1 K/mcL (0.6-4.6); Lymphocytes % 18.3 %; Mean Corpuscular HGB Conc 33.1 g/dL (31.6-35.5); Mean Corpuscular Hemoglobin 31.9 pg (28.0-33.3); Mean Corpuscular Volume 96.3 fL (83.0-100.0); Mean Platelet Volume 9.6 fL (9.4-12.4); Monocytes # 0.4 K/mcL (0.0-1.3); Monocytes % 7.5 %; Platelet Count 200 K/mcL (140-400); Red Blood Count 3.83 M/mcL (3.82-4.97); Red Cell Distribution Width 13.2 % (11.5-14.5); Segmented Neutrophils % 69.6 %
[2018-07-07 16:22] LABS: INR 1.1; Prothrombin Time 12.6 Seconds (9.4-12.1)
[2018-07-07 16:24] LABS: Activated Partial Thrombo Time 28.2 Seconds (26.0-36.0)
[2018-07-07 16:32] LABS: BUN/Creatinine Ratio 13 (6-26); Blood Urea Nitrogen 9 mg/dL (8-23); Calcium 8.9 mg/dL (8.6-10.3); Carbon Dioxide 22 mEq/L (23-29); Chloride 110 mEq/L (98-107); Glucose 101 mg/dL (70-105); Osmolality,Calculated 287 (280-300); Potassium 3.6 mEq/L (3.5-5.1); Sodium 139 mEq/L (136-145); Troponin I < 0.03 ng/mL (< 0.04); eGFR For Non-African Americans > 60 (> 60)
[2018-07-07] MEDS ORDERED: Lidocaine 1% 20 ML MDV INFILT ONE (17:05)
[2018-07-07] MEDS ORDERED: Tdap (Boostrix) Vaccine 0.5 ML SYRINGE IM ONE (17:05)
--- NOTE | 2018-07-07 17:09 | Emergency Department Note ---
Disposition Clinical Impression: Syncope Qualifiers: Syncope type: unspecified Qualified Code(s): R55 - Syncope and collapse Fall Qualifiers: Encounter type: initial encounter Qualified Code(s): W19.XXXA - Unspecified fall, initial encounter Disposition: Admitted As Inpatient Condition: Good General Adult HPI - General Chief complaint: ED Fall Stated complaint: Fall/ Head Injury Source: patient, EMS Limitations: no limitations Nursing Notes Reviewed: Yes Vital Signs Reviewed: Yes - History of Present Illness HPI Narrative: Patient presents today for evaluation of syncope and fall. Patient will fell down 3 steps. Injured the back of her head. Had significant bleeding and presented to the emergency department for further evaluation. Patient states that she just got back from a [place] vacation. She states that she has been having increasing dizziness and near syncope. She was worried about telling her that she did not want to be brought into the hospital. Patient then had syncopal episode today while on the steps. Denies chest pain or shortness of breath. Dizziness is worse with standing and described as lightheadedness. Pain Scale: 7 - Related Data Home Medications Medication Instructions Recorded Confirmed Aspirin Enteric Coated [Aspirin EC] 325 mg PO DAILY 06/28/16 07/07/18 Citalopram [CeleXA] 20 mg PO DAILY 06/28/16 07/07/18 Ezetimibe/Simvastatin [Vytorin 1 tab PO DAILY 06/28/16 07/07/18 10-40 mg Tablet] Gluc/Cecilio-MSM#1/C/Zaid/Dawit/Bor 1 tab PO DAILY 06/28/16 07/07/18 [Osteo Bi-Flex Caplet] Dicyclomine [Bentyl] 20 mg PO TID 03/03/18 07/07/18 Eluxadoline [Viberzi] 75 mg PO BID 03/03/18 07/07/18 Memantine HCl 10 mg PO BID 03/03/18 07/07/18 Cholecalciferol (D-3) [Vitamin D] 4,000 unit PO DAILY 04/29/18 07/07/18 [place]-3/Dha/Epa/Fish Oil [Fish Oil 1 cap PO DAILY 04/29/18 07/07/18 1,000 mg Softgel] Allergies Allergy/AdvReac Type Severity Reaction Status Date / Time lisinopril Allergy Swelling Verified 05/29/18 11:34 of Lip/Tongue/Throat Review of Systems: CONSTITUTIONAL: No weight loss, fever, chills, weakness or fatigue. HEENT: Eyes: No visual changes. Ears, Nose, Throat: No hearing loss, difficulty talking or unable to swallow. SKIN: Laceration CARDIOVASCULAR: No chest pain, chest pressure or chest discomfort. No palpitations or edema. RESPIRATORY: No shortness of breath, cough or sputum. GASTROINTESTINAL: No anorexia, nausea, vomiting or diarrhea. No abdominal pain or blood. GENITOURINARY: No burning on urination or hematuria. NEUROLOGICAL: Dizziness with syncope and loss of consciousness No headache, paralysis, ataxia, numbness or tingling in the extremities. No change in bowel or bladder control. MUSCULOSKELETAL: No muscle pain, back pain, joint pain or stiffness. Past Medical History - Past Medical History Medical history: Reports: asthma, hyperlipidemia, hypertension, TIA Psychiatric history: Reports: anxiety - Social History Smoking Status: Never smoker Smokeless Tobacco Status: No Alcohol use: Reports: none Drug use: Reports: none Physical Exam General: Well appearing, nontoxic, no acute distress Head: Normocephalic Atraumatic Eyes: PERRL, EOMI ENT: Airway patent, no stridor Neck: supple; no tenderness to palpation of the cervical thoracic or lumbar spine. Chest: Lungs clear to auscultation bilateral Cardiac: Regular rhythm, no murmurs, rubs or gallops Abdomen: soft, nontender, nondistended; no guarding, rebound, or tenderness to percussion Musculoskeletal: Moves all 4 extremities without deficit. No paresthesias. Skin: Laceration to head. Neuro: Alert and Oriented to person and place, no focal deficit. - General Limitations: no limitations General appearance: alert, in no apparent distress Course - Reevaluation(s) Reevaluation #1: Patient C-spine cleared. No evidence of trauma on imaging. Patient will be admitted for syncope evaluation. EKG and troponin are unremarkable. Reevaluation #2: After the patient was accepted by the hospital she began complaining of right wrist pain. Tenderness to the radial aspect of the wrist. She will undergo further wrist x-ray. Patient's x-ray will need to be followed on the floor. - Consultations Consultation #1: Discussed with hospitalist. Patient accepted for admission. Vital Signs Temperature 98.5 F 07/07/18 15:28 Pulse Rate 72 07/07/18 15:28 Respiratory Rate 18 07/07/18 15:28 Blood Pressure 182/98 07/07/18 15:28 O2 Sat by Pulse Oximetry 99 07/07/18 15:28 Temperature 98.5 F 07/07/18 15:28 Pulse Rate 72 07/07/18 15:28 Respiratory Rate 18 07/07/18 15:28 Blood Pressure 182/98 07/07/18 15:28 O2 Sat by Pulse Oximetry 99 07/07/18 15:28 Oxygen Delivery Oxygen Delivery Room Air Procedures - Laceration Laceration 1 Site: scalp Side (If applicable): right Size (cm): 2 Description: linear Depth: simple, single layer Local Anesthetic: lidocaine 1% Amount of Anesthesia Used (mL): 2 Pre-repair: wound explored, irrigated extensively, deep structures intact Number of sutures/santiago: 3 (santiago) Medical Decision Making - Medical Records Medical records reviewed: Yes I reviewed the patient's medical records. - Lab Data Lab results reviewed: Yes I reviewed the patient's lab results. Result diagrams: 07/07/18 15:59 07/07/18 15:59 Lab Results 07/07/18 07/07/18 07/07/18 Range/Units 15:59 15:59 15:59 WBC 5.8 (4.3-11.1) K/mcL RBC 3.83 (3.82-4.97) M/mcL Hgb 12.2 (11.5-15.4) g/dL Hct 36.9 (35.3-44.9) % MCV 96.3 (83.0-100.0) fL MCH 31.9 (28.0-33.3) pg MCHC 33.1 (31.6-35.5) g/dL RDW 13.2 (11.5-14.5) % Plt Count 200 (140-400) K/mcL MPV 9.6 (9.4-12.4) fL Immature Gran % 0.3 (0-4) % Seg Neutrophils % 69.6 % Lymphocytes % 18.3 % Monocytes % 7.5 % Eosinophils % 4.0 % Basophils % 0.3 % Neutrophils # 4.0 (1.6-8.9) K/mcL Lymphocytes # 1.1 (0.6-4.6) K/mcL Monocytes # 0.4 (0.0-1.3) K/mcL Eosinophils # 0.2 (0.0-0.6) K/mcL Basophils # 0.0 (0.0-0.2) K/mcL PT 12.6 H (9.4-12.1) Seconds INR 1.1 APTT 28.2 (26.0-36.0) Seconds Sodium 139 (136-145) mEq/L Potassium 3.6 (3.5-5.1) mEq/L Chloride 110 H (98-107) mEq/L Carbon Dioxide 22 L (23-29) mEq/L BUN 9 (8-23) mg/dL Creatinine 0.71 (0.60-1.20) mg/dL Est GFR ( Amer) > 60 (> 60) Est GFR (Non-Af Amer) > 60 (> 60) BUN/Creatinine Ratio 13 (6-26) Glucose 101 (70-105) mg/dL Calculated Osmolality 287 (280-300) Calcium 8.9 (8.6-10.3) mg/dL Troponin I < 0.03 (< 0.04) ng/mL - Radiology Data Radiology results reviewed: Yes I reviewed the patient's radiology results. - EKG Data EKG #1 EKG attestation: Yes I reviewed and interpreted this EKG. EKG results narrative: EKG shows sinus rhythm with ventricular rate of 60. NE interval 138. QRS 92. QTC 430. Patient has no significant ST elevations or depressions. She does have T-wave flattening which is seen consistent with previous 04/28/18.
[2018-07-07] MEDS ORDERED: Ringers Solution, Lactated 1,000 ML IVC SCH (20:45)
[2018-07-07] MEDS: ELUXADOLINE 75 MG PO SCH (22:19)
--- NOTE | 2018-07-07 23:51 | Internal Med History&Physical ---
Date of Encounter: 07/07/18 Time of Encounter: 23:50 Internal Medicine - H&P: HPI Chief complaint: fall Admitted From: Home Plans for Post Hospital Care: Home History of present illness: Ms. Hoffman is a 72 year old female with a history of asthma, questionable TIA, hypertension , hyperlipidemia, chronic bradycardia and mild dementia who has been evaluated for syncope about one year ago and deemed likely due to orthostasis in the setting of antihypertensives who presents now brought in by her because of a fall down the last 3 steps in her basement. She is unable to recollect the events surrounding but just found herself down on the ground and when she got up to continue doing her chores she noticed a pool of blood on the floor and then noticed she had a laceration on her head. There is report of occasional lightheadedness and dizziness as per the and follows yearly with the adult health clinical nurse specialist last seen only 2 weeks ago and was given a clean bill of health. At this time she denies any headache, dizziness, lightheadedness, chest pain, dyspnea, diaphoresis, nausea, vomiting or abdominal pain. Ryan were put in for her laceration and she was placed on observation for ongoing monitoring. No arrhythmias were detected and her vital signs were stable. When I talked to the patient and her they state that 2 days ago she had a meal at a restaurant and right after that she started having diarrhea which went on all day the same day and yesterday as well with very poor oral intake due to this. Had any more diarrhea today. Review of old records is notable for a recent nuclear stress test done this year which was unremarkable with a normal EF as well as a carotid duplex which showed more significant stenosis on the left ICA. Records also show that in the last 2 months she had surgical removal of the mesh she had place for an abdominal hernia with lysis of adhesions. Past Med Surg Social Fam HX - Past Medical History Medical history: asthma, hyperlipidemia, hypertension, TIA Additional medical history: SLEEP APNEA, FIBROMYALGIA, DVT, ENDOMETRIAL CA, MASTALGIA, VENOUS INSUFF, Psychiatric history: anxiety - Past Surgical History Additional surgical history: "not recently". cervical cancer. hernia - Social History Smoking Status: Former smoker Smokeless Tobacco Status: No Alcohol use: none Drug use: none - Family History Mother Hx Family Cardiac Disorders: Yes (Stroke) Hx Family Respiratory Disorders: No Hx Family Cancer: Yes (Cervical) Hx Family GI Disorders: No Hx Family Endocrine Disorder: Yes (DM) Hx Family Neuromuscular Disorders: No Hx Family Neurologic Disorders: No Hx Family HEENT Disorders: No Hx Family Autoimmune Disorders: No Brother Hx Family Cardiac Disorders: Yes (cva) Hx Family Respiratory Disorders: No Hx Family Cancer: No Hx Family GI Disorders: No Hx Family Endocrine Disorder: Yes (DM) Hx Family Neuromuscular Disorders: No Hx Family Neurologic Disorders: No Hx Family HEENT Disorders: No Hx Family Autoimmune Disorders: No Internal Medicine - H&P: Meds Aspirin Enteric Coated [Aspirin EC] 325 mg PO DAILY 06/28/16 [History] Citalopram [CeleXA] 20 mg PO DAILY 06/28/16 [History] Ezetimibe/Simvastatin [Vytorin 10-40 mg Tablet] 1 tab PO DAILY 06/28/16 [History ] Gluc/Cecilio-MSM#1/C/Zaid/Dawit/Bor [Osteo Bi-Flex Caplet] 1 tab PO DAILY 06/28/16 [ History] Dicyclomine [Bentyl] 20 mg PO TID 03/03/18 [History] Eluxadoline [Viberzi] 75 mg PO BID 03/03/18 [History] Memantine HCl 10 mg PO BID 03/03/18 [History] Cholecalciferol (D-3) [Vitamin D] 4,000 unit PO DAILY 04/29/18 [History] [place]-3/Dha/Epa/Fish Oil [Fish Oil 1,000 mg Softgel] 1 cap PO DAILY 04/29/18 [ History] 3 Allergy/AdvReac Type Severity Reaction Status Date / Time lisinopril Allergy Swelling Verified 04/29/18 11:34 of Lip/Tongue/Throat All Systems PM: A 10-system review of systems was performed and is negative for pertinent findings except as documented above in the HPI. - Constitutional Vitals: Temp Pulse Resp BP Pulse Ox 98.4 F 61 15 149/68 99 07/07/18 22:47 07/07/18 22:47 07/07/18 22:47 07/07/18 22:47 07/07/18 22:47 Exam: Vitals: Reviewed General: We will developed female lying comfortably in bed in no acute distress Skin: Laceration noted on her scalp with ryan in place and no longer bleeding. HEENT: Moist mucous membranes. No conjunctivae pallor. Neck: No lymphadenopathy. No JVD. No carotid bruits. No palpable thyroid. Chest: Normal thoracic expansion. Normal breath sounds. Clear to auscultation. Heart: Normal S1 & S2; rhythmic. No rubs or murmurs. Abdomen: Non-distended, soft and non-tender to palpation. No peritoneal reaction. Large midline surgical incision scar noted that is intact. Extremities: No clubbing, cyanosis or edema. No calf tenderness. Normal distal pulses. Neurological: Awake, alert and oriented to person, place and time. No focal deficits. Psych: Affect appropriate. Internal Med - H&P Results - Labs CBC & Chem 7: 07/07/18 15:59 07/07/18 15:59 - Impressions ITS Impressions Wrist X-Ray 07/07/18 20:20 IMPRESSION: No radiographic evidence of fracture or dislocation identified. D/ / Forest Marin MD / Forest Marin MD Interpreting Provider: Forest Marin MD - Assessment and plan (1) Syncope Current Visit: Yes Status: Acute Assessment and plan: Unclear etiology. Possibly multifactorial in origin aced on the finding of bradycardia which is not new, poor oral intake with 2 days of diarrhea leading to volume loss and subsequent orthostasis, peripheral vascular disease with left internal carotid stenosis. EKG shows normal sinus rhythm at this time and she remained hemodynamically stable. Her first troponin is negative and we will repeat another one to ensure there is no cardiac ischemia. No place her on telemetry for ongoing observation with IV fluid resuscitation as well. Given recent echo, stress test and duplex no be no need to repeat the studies now. Qualifiers: Syncope type: unspecified Qualified Code(s): R55 - Syncope and collapse (2) Fall Current Visit: Yes Status: Acute Assessment and plan: Due to syncopal episode. She may need PT evaluation for steady gait in the setting of helping dementia. Fall precautions ordered. Qualifiers: Encounter type: initial encounter Qualified Code(s): W19.XXXA - Unspecified fall, initial encounter (3) Bradycardia Current Visit: Yes Status: Chronic Assessment and plan: Really not symptomatic and not warranting urgent intervention; not on beta blockers or calcium channel blockers; seen to be a long-standing condition (4) Dementia Current Visit: Yes Status: Chronic Assessment and plan: Continue home medication memantine Qualifiers: Dementia type: unspecified type Dementia behavioral disturbance: without behavioral disturbance Qualified Code(s): F03.90 - Unspecified dementia without behavioral disturbance (5) High blood pressure Current Visit: Yes Status: Chronic Assessment and plan: Currently no longer on antihypertensives on instruction of her adult health clinical nurse specialist. Qualifiers: Hypertension type: essential hypertension Qualified Code(s): I10 - Essential (primary) hypertension (6) TAMAR (obstructive sleep apnea) Current Visit: Yes Status: Chronic Assessment and plan: CPAP prn (7) Carotid stenosis, bilateral Current Visit: Yes Status: Acute Assessment and plan: Continue ASA 81mg. May need vascular evaluation or dual antiplatelet therapy. (8) DVT prophylaxis Current Visit: Yes Status: Acute Assessment and plan: SubQ heparin. - Time Spent With Patient Total time spent is greater than 50% in coordination of care (as documented) at patient's floor/unit and/or counseling patient: Greater than 35 minutes
[2018-07-08 04:56] LABS: Basophils % 0.2 %; Eosinophils # 0.3 K/mcL (0.0-0.6); Eosinophils % 5.1 %; Hematocrit 33.3 % (35.3-44.9); Hemoglobin 11.1 g/dL (11.5-15.4); Immature Granulocytes % 0.3 % (0-4); Lymphocytes # 1.6 K/mcL (0.6-4.6); Lymphocytes % 27.2 %; Mean Corpuscular HGB Conc 33.3 g/dL (31.6-35.5); Mean Platelet Volume 9.6 fL (9.4-12.4); Monocytes # 0.5 K/mcL (0.0-1.3); Monocytes % 8.7 %; Neutrophils # 3.4 K/mcL (1.6-8.9); Platelet Count 164 K/mcL (140-400); Red Blood Count 3.47 M/mcL (3.82-4.97); Red Cell Distribution Width 13.2 % (11.5-14.5); Segmented Neutrophils % 58.5 %
[2018-07-08 05:14] LABS: BUN/Creatinine Ratio 11 (6-26); Blood Urea Nitrogen 6 mg/dL (8-23); Calcium 8.3 mg/dL (8.6-10.3); Carbon Dioxide 24 mEq/L (23-29); Chloride 111 mEq/L (98-107); Glucose 91 mg/dL (70-105); Osmolality,Calculated 289 (280-300); Potassium 3.4 mEq/L (3.5-5.1); Sodium 141 mEq/L (136-145); eGFR For Non-African Americans > 60 (> 60)
[2018-07-08 05:15] LABS: Troponin I < 0.03 ng/mL (< 0.04)
[2018-07-08] MEDS ORDERED: Potassium Chloride Elixir 20 MEQ/15 ML UDC PO ONE (05:31)
[2018-07-08] MEDS ORDERED: *HR* Heparin 5,000 UNIT/ML VIAL SQ SCH (06:00)
[2018-07-08] MEDS ORDERED: (Ezetimibe/Simvastatin [Vytorin 10-40 Mg Tablet] 1 TA PO SCH (09:00)
[2018-07-08] MEDS ORDERED: Aspirin 81 MG TAB.CHEW PO SCH (09:00)
[2018-07-08] MEDS ORDERED: Cholecalciferol (D-3) 1,000 UNIT TABLET PO SCH (09:00)
[2018-07-08] MEDS: ELUXADOLINE 75 MG PO SCH (11:30)
--- NOTE | 2018-07-08 12:16 | Discharge Summary ---
- NOTES TO OUTPATIENT PROVIDER Notes to Outpatient Provider: f/u with PCP, cardiology, and neurology as scheduled. Date of Encounter: 07/08/18 Time of Encounter: 12:13 - Discharge Diagnosis (1) Syncope Priority: Primary Status: Acute Qualifiers: Syncope type: unspecified Qualified Code(s): R55 - Syncope and collapse (2) Fall Priority: Primary Status: Acute Qualifiers: Encounter type: initial encounter Qualified Code(s): W19.XXXA - Unspecified fall, initial encounter (3) TAMAR (obstructive sleep apnea) Priority: Secondary Status: Chronic (4) Bradycardia Priority: Secondary Status: Chronic (5) Dementia Priority: Secondary Status: Chronic Qualifiers: Dementia type: unspecified type Dementia behavioral disturbance: without behavioral disturbance Qualified Code(s): F03.90 - Unspecified dementia without behavioral disturbance (6) High blood pressure Priority: Secondary Status: Chronic Qualifiers: Hypertension type: essential hypertension Qualified Code(s): I10 - Essential (primary) hypertension (7) Carotid stenosis, bilateral Priority: Secondary Status: Chronic (8) DVT prophylaxis Priority: Primary Status: Acute Hospital course: Ms. Hoffman is a 72 year old female with a history of asthma, questionable TIA, hypertension , hyperlipidemia, chronic bradycardia and mild dementia who has been evaluated for syncope about one year ago and deemed likely due to orthostasis in the setting of antihypertensives who presents now brought in by her because of a fall down the last 3 steps in her basement. She is unable to recollect the events surrounding but just found herself down on the ground and when she got up to continue doing her chores she noticed a pool of blood on the floor and then noticed she had a laceration on her head. There is report of occasional lightheadedness and dizziness as per the and follows yearly with the ad terminal makeup operator last seen only 2 weeks ago and was given a clean bill of health. Patient just came back from vacation last week. Per , she had a diarrhea on Saturday and very poor oral intake on Saturday. Ryan were put in for her laceration and she was placed on observation for ongoing monitoring. No arrhythmias were detected and her vital signs were stable after rehydration with IV fluid. Patient already established appointment with PCP, cardiology, and neurology. They all are aware of the patient symptoms /syncope/falls. After discussed with , patient will be discharged today , she will continue follow-up with PCP and the specialists. Discharge discussed with: patient Time spent discussing smoking cessation with patient: more than 10 minutes - Time Spent with Patient Total time spent providing and/or coordinating discharge services: Greater than 30 minutes - Discharge Medications Home Medications: Aspirin Enteric Coated [Aspirin EC] 325 mg PO DAILY 06/28/16 [History] Citalopram [CeleXA] 20 mg PO DAILY 06/28/16 [History] Ezetimibe/Simvastatin [Vytorin 10-40 mg Tablet] 1 tab PO DAILY 06/28/16 [History ] Gluc/Cecilio-MSM#1/C/Zaid/Dawit/Bor [Osteo Bi-Flex Caplet] 1 tab PO DAILY 06/28/16 [ History] Dicyclomine [Bentyl] 20 mg PO TID 03/03/18 [History] Eluxadoline [Viberzi] 75 mg PO BID 03/03/18 [History] Memantine HCl 10 mg PO BID 03/03/18 [History] Cholecalciferol (D-3) [Vitamin D] 4,000 unit PO DAILY 04/29/18 [History] [place]-3/Dha/Epa/Fish Oil [Fish Oil 1,000 mg Softgel] 1 cap PO DAILY 04/29/18 [ History] Allergies/Adverse Reactions: 3 Allergy/AdvReac Type Severity Reaction Status Date / Time lisinopril Allergy Swelling Verified 04/29/18 11:34 of Lip/Tongue/Throat Date of admission: 07/07/18 19:14 Primary care physician: Luis F Patrick MD Consults: 07/08/18 00:01 PT [Consult to Physical Therapy] [CONS] Routine Comment: Evaluate, develop and implement POC Reason for Consult: mild dementia, unsteady gait, recent fall. Does patient have active BEDREST order?: No Is patient medically & hemodynamically stable?: Yes Patient assessed for mobility or mobilized this visit?: Yes Anticipated date of discharge: 07/08/18 - Constitutional Vitals: Temp Pulse Resp BP Pulse Ox 97.7 F 55 15 147/79 96 07/08/18 11:15 07/08/18 11:15 07/08/18 11:15 07/08/18 11:15 07/08/18 11:15 General appearance: Present: A&O X 2, answers questions appropriately Exam: PHYSICAL EXAMINATION: GENERAL APPEARANCE: The patient is alert, oriented and in no acute distress. HEENT: Head is normocephalic. The sinuses are nontender. Pupils are equal and reactive. The nares are patent. Oropharynx clear without lesions. NECK: Supple without lymphadenopathy. HEART: Regular rate and rhythm. LUNGS: No crackles or wheezes are heard. ABDOMEN: Soft, nontender, nondistended with good bowel sounds heard. Inguinal area is normal. EXTREMITIES: Without cyanosis, clubbing or edema. NEUROLOGICAL: Gross nonfocal. SKIN: Warm and dry without any rash. - Patient Status Disposition: Home, Self-Care Condition: Good Functional capacity at discharge: independent ambulation Overall status at discharge: patient is back to baseline - Discharge Instructions Follow Up With: Luis F Patrick MD [Primary Care Provider] - 07/14/18 2:00 pm - Diet and Activity Activity: increase activity as tolerated Diet: other, regular diet
[2018-07-08 15:23] VITALS: BP 131/78
--- NOTE | 2018-07-09 15:03 | Electrocardiograph Report ---
[place] [id number] Test Date: 2018-07-07 Pat Name: Kathy Hoffman Department: 103 Room: 3B43 Gender: F Travel Clerk: DANIELA : 1945 Requested By: [id number] Order Number: [id number] Reading MD: Harvey Hernandez Measurements Intervals [place] Rate: 60 P: 58 [place]: 138 QRS: -26 QRSD: 92 T: -9 QT: 430 QTc: 430 Interpretive Statements SINUS RHYTHM BORDERLINE LEFT AXIS DEVIATION Electronically Signed On 07-09-2018 15:01:18 EDT by Harvey Hernandez
== END 2018-07-08 16:55 | disposition home or self-care (01) ==
LOC: 3BNU 15:24 → EMEROO 15:24 → 3BNU 20:28
PROVIDERS: ADMIT Internal Medicine; ATTEND Internal Medicine

== ENCOUNTER 2021-09-03 12:32 | Inpatient (IN) ==
[2021-09-03] MEDS ORDERED: Aspirin 81 MG TAB.CHEW PO ONE (12:39)
[2021-09-03 13:17] LABS: Basophils % 0.3 %; Eosinophils # 0.1 K/mcL (0.0-0.6); Eosinophils % 1.8 %; Hematocrit 39.5 % (35.3-44.9); Immature Granulocytes % 0.3 % (0-4); Lymphocytes % 14.6 %; Mean Corpuscular HGB Conc 32.9 g/dL (31.6-35.5); Mean Corpuscular Hemoglobin 32.4 pg (28.0-33.3); Mean Corpuscular Volume 98.5 fL (83.0-100.0); Monocytes # 0.5 K/mcL (0.0-1.3); Monocytes % 7.9 %; Platelet Count 162 K/mcL (140-400); Red Blood Count 4.01 M/mcL (3.82-4.97); Red Cell Distribution Width 12.5 % (11.5-14.5); Segmented Neutrophils % 75.1 %; White Blood Count 6.7 K/mcL (4.3-11.1)
[2021-09-03 13:33] LABS: BUN/Creatinine Ratio 15 (6-26); Blood Urea Nitrogen 10 mg/dL (8-23); Calcium 8.8 mg/dL (8.6-10.3); Carbon Dioxide 27 mEq/L (23-29); Chloride 107 mEq/L (98-107); Glucose 85 mg/dL (70-105); Osmolality,Calculated 290 (280-300); Potassium 3.9 mEq/L (3.5-5.1); Sodium 141 mEq/L (136-145); eGFR For African Americans > 60 (> 60); eGFR For Non-African Americans > 60 (> 60)
[2021-09-03 13:34] LABS: Troponin I < 0.03 ng/mL (< 0.04)
[2021-09-03] MEDS ORDERED: Naloxone 0.4 MG/ML INJ IVP PRN (13:49)
[2021-09-03] MEDS ORDERED: Ondansetron 4 MG/2 ML VIAL IVP PRN (13:49)
[2021-09-03] MEDS ORDERED: Nitroglycerin 0.4 MG TAB.SUBL SL PRN (13:49)
[2021-09-03] MEDS ORDERED: Perflutren Lipid Microsphere 1.3 ML in 0.9 % Sodium Chloride 8.7 ML IVP PRN (14:16)
[2021-09-03 18:27] LABS: INR 1.2
[2021-09-03 18:36] LABS: Alanine Aminotransferase 8 Units/L (7-52); Albumin 4.1 g/dL (3.5-5.7); Albumin/Globulin Ratio 1.5 (1.1-2.2); Alkaline Phosphatase 81 Units/L (34-104); Aspartate Amino Transferase 16 Units/L (13-39); Bilirubin,Direct 0.1 mg/dL (0.0-0.2); Bilirubin,Indirect 0.5 mg/dL (0.0-1.0); Bilirubin,Total 0.6 mg/dL (0.3-1.0); Chol/HDL Ratio 2.7 (0-4.9); Cholesterol 116 mg/dL (< 200); Globulin 2.7 g/dL (2.4-3.5); HDL Cholesterol 43 mg/dL (40-59); LDL Cholesterol,Calculated 54 mg/dL (< 100); Phosphorous 3.4 mg/dL (2.7-4.5); Total Protein 6.8 g/dL (6.4-8.9); Triglycerides 93 mg/dL (< 150); Troponin I < 0.03 ng/mL (< 0.04)
[2021-09-03 18:38] LABS: Estimated Average Glucose 105 mg/dl; Hemoglobin A1C 5.3 %
[2021-09-03 18:50] LABS: Thyroid Stimulating Hormone 1.047 mcIU/mL (0.340-5.600)
[2021-09-03] MEDS: *HR* Enoxaparin 40 MG/0.4 ML SYRINGE SQ SCH (22:25)
[2021-09-04] MEDS ORDERED: Aspirin 81 MG TAB.CHEW PO SCH (09:00)
[2021-09-04] MEDS ORDERED: QUEtiapine Fumarate 25 MG TABLET PO PRN (12:48)
[2021-09-04] MEDS ORDERED: Gabapentin 100 MG CAPSULE PO SCH (21:00)
[2021-09-05] MEDS ORDERED: Regadenoson 0.4 MG/5 ML SYRINGE IVP ONE (06:08)
[2021-09-05] MEDS: *HR* Enoxaparin 40 MG/0.4 ML SYRINGE SQ SCH (06:17)
[2021-09-05] MEDS ORDERED: Aspirin Enteric Coated 325 MG Tablet PO SCH (09:00)
[2021-09-05] MEDS ORDERED: Ezetimibe [Zetia] 10 MG Tablet PO SCH (09:00)
[2021-09-05] MEDS ORDERED: Cyanocobalamin (B-12) 1,000 MCG TABLET PO SCH (09:00)
[2021-09-05 10:28] VITALS: BP 131/89; PULSE 78; TEMP 97.7; O2SAT 96
== END 2021-09-05 14:26 | disposition home or self-care (01) | DRG 313 ==
LOC: 3BNU 12:32 → EMEROOARM 12:32 → SUATTDRO 14:06 → 3BNU 14:48
PROVIDERS: ADMIT Student in an Organized Health Care Education/Training Program; ATTEND Internal Medicine

== ENCOUNTER 2022-01-10 13:59 | Inpatient (IN) ==
[2022-01-10 15:09] LABS: Basophils % 0.4 %; Eosinophils # 0.1 K/mcL (0.0-0.6); Eosinophils % 1.5 %; Hematocrit 38.9 % (35.3-44.9); Hemoglobin 13.1 g/dL (11.5-15.4); Immature Granulocytes % 0.5 % (0-4); Lymphocytes # 1.2 K/mcL (0.6-4.6); Lymphocytes % 14.7 %; Mean Corpuscular HGB Conc 33.7 g/dL (31.6-35.5); Mean Corpuscular Hemoglobin 32.8 pg (28.0-33.3); Mean Corpuscular Volume 97.5 fL (83.0-100.0); Mean Platelet Volume 10.1 fL (9.4-12.4); Monocytes # 0.5 K/mcL (0.0-1.3); Monocytes % 6.3 %; Neutrophils # 6.3 K/mcL (1.6-8.9); Platelet Count 175 K/mcL (140-400); Red Blood Count 3.99 M/mcL (3.82-4.97); Segmented Neutrophils % 76.6 %; White Blood Count 8.2 K/mcL (4.3-11.1)
[2022-01-10 15:20] LABS: BUN/Creatinine Ratio 10 (6-26); Blood Urea Nitrogen 8 mg/dL (8-23); Calcium 9.2 mg/dL (8.6-10.3); Carbon Dioxide 30 mEq/L (23-29); Chloride 104 mEq/L (98-107); Glucose 103 mg/dL (70-105); Osmolality,Calculated 287 (280-300); Potassium 3.7 mEq/L (3.5-5.1); Sodium 139 mEq/L (136-145); eGFR For African Americans > 60 (> 60); eGFR For Non-African Americans > 60 (> 60)
[2022-01-10] MEDS ORDERED: Haloperidol Lactate 5 MG/ML VIAL IVP ONE (17:41)
[2022-01-10] MEDS ORDERED: *HR* FentaNYL (PF) 100 MCG/2 ML VIAL IVP ONE (17:56)
[2022-01-10] MEDS ORDERED: Naloxone 0.4 MG/ML INJ IVP PRN (20:48)
[2022-01-10] MEDS ORDERED: Acetaminophen 325 MG TABLET PO PRN (20:48)
[2022-01-10] MEDS ORDERED: Ondansetron 4 MG/2 ML VIAL IVP PRN (20:48)
[2022-01-10 21:53] LABS: Influenza A PCR Negative (Negative); Influenza B PCR Negative (Negative); Resp. Syncytial Virus PCR Negative (Negative)
[2022-01-10 22:00] LABS: SARS-CoV-2 by PCR (In House) Negative (Negative)
[2022-01-10] MEDS: 0.9 % Sodium Chloride 1,000 ML IVC SCH (22:45)
[2022-01-10] MEDS: Ketorolac 30 MG/ML VIAL IVP SCH (23:36)
[2022-01-11 01:50] LABS: Bilirubin,Urine Negative (Negative); Blood,Urine Negative (Negative); Clarity,Urine Clear (Clear); Color,Urine Yellow (Yellow); Glucose,Urine (UA) Normal (Normal); Ketones,Urine Negative (Negative); Leukocyte Esterase,Urine Negative (Negative); Nitrite,Urine Negative (Negative); PH,Urine 5.5 pH Units (5.0-8.0); Protein,Urine Trace mg/dL (Neg-Trace); Specific Gravity,Urine 1.021 (1.010-1.025)
[2022-01-11] MEDS: Ketorolac 30 MG/ML VIAL IVP SCH ×2 (05:54→12:05)
[2022-01-11 07:52] LABS: INR 1.1; Prothrombin Time 12.6 Seconds (9.4-12.1)
[2022-01-11 07:53] LABS: Basophils % 0.3 %; Eosinophils # 0.1 K/mcL (0.0-0.6); Eosinophils % 1.4 %; Hematocrit 37.9 % (35.3-44.9); Hemoglobin 12.4 g/dL (11.5-15.4); Immature Granulocytes % 0.3 % (0-4); Lymphocytes # 1.1 K/mcL (0.6-4.6); Lymphocytes % 15.8 %; Mean Corpuscular HGB Conc 32.7 g/dL (31.6-35.5); Mean Corpuscular Hemoglobin 32.3 pg (28.0-33.3); Mean Corpuscular Volume 98.7 fL (83.0-100.0); Mean Platelet Volume 9.9 fL (9.4-12.4); Monocytes # 0.5 K/mcL (0.0-1.3); Monocytes % 8.1 %; Neutrophils # 4.9 K/mcL (1.6-8.9); Platelet Count 164 K/mcL (140-400); Red Blood Count 3.84 M/mcL (3.82-4.97); Red Cell Distribution Width 12.1 % (11.5-14.5); Segmented Neutrophils % 74.1 %; White Blood Count 6.6 K/mcL (4.3-11.1)
[2022-01-11 08:14] LABS: Alanine Aminotransferase 10 Units/L (7-52); Albumin/Globulin Ratio 1.7 (1.1-2.2); Alkaline Phosphatase 81 Units/L (34-104); Aspartate Amino Transferase 14 Units/L (13-39); BUN/Creatinine Ratio 11 (6-26); Bilirubin,Direct 0.1 mg/dL (0.0-0.2); Bilirubin,Indirect 0.6 mg/dL (0.0-1.0); Bilirubin,Total 0.7 mg/dL (0.3-1.0); Blood Urea Nitrogen 8 mg/dL (8-23); Calcium 8.9 mg/dL (8.6-10.3); Carbon Dioxide 27 mEq/L (23-29); Chloride 105 mEq/L (98-107); Globulin 2.3 g/dL (2.4-3.5); Glucose 86 mg/dL (70-105); Osmolality,Calculated 286 (280-300); Potassium 3.8 mEq/L (3.5-5.1); Sodium 139 mEq/L (136-145); Total Protein 6.3 g/dL (6.4-8.9); eGFR For African Americans > 60 (> 60); eGFR For Non-African Americans > 60 (> 60)
[2022-01-11] MEDS: 0.9 % Sodium Chloride 1,000 ML IVC SCH (12:07)
[2022-01-11] MEDS ORDERED: ARMODAFINIL 50 MG PO PRN (12:08)
[2022-01-11] MEDS: *HR* OxyCODONE Immed Rel 5 MG TABLET PO PRN (16:43)
[2022-01-11] MEDS: Gabapentin 100 MG CAPSULE PO SCH (19:55)
[2022-01-12 05:07] LABS: Hematocrit 39.5 % (35.3-44.9); Hemoglobin 13.1 g/dL (11.5-15.4); Immature Granulocytes % 0.3 % (0-4); Lymphocytes % 15.8 %; Mean Corpuscular HGB Conc 33.2 g/dL (31.6-35.5); Mean Corpuscular Hemoglobin 32.7 pg (28.0-33.3); Mean Corpuscular Volume 98.5 fL (83.0-100.0); Mean Platelet Volume 9.7 fL (9.4-12.4); Platelet Count 157 K/mcL (140-400); Red Blood Count 4.01 M/mcL (3.82-4.97); Red Cell Distribution Width 11.9 % (11.5-14.5); Segmented Neutrophils % 73.3 %; White Blood Count 6.9 K/mcL (4.3-11.1)
[2022-01-12 05:08] LABS: Basophils % 0.3 %; Eosinophils # 0.2 K/mcL (0.0-0.6); Eosinophils % 2.6 %; Lymphocytes # 1.1 K/mcL (0.6-4.6); Monocytes # 0.5 K/mcL (0.0-1.3); Monocytes % 7.7 %; Neutrophils # 5.1 K/mcL (1.6-8.9)
[2022-01-12 05:28] LABS: BUN/Creatinine Ratio 17 (6-26); Blood Urea Nitrogen 12 mg/dL (8-23); Carbon Dioxide 29 mEq/L (23-29); Chloride 105 mEq/L (98-107); Glucose 91 mg/dL (70-105); Osmolality,Calculated 289 (280-300); Potassium 4.1 mEq/L (3.5-5.1); Sodium 140 mEq/L (136-145); eGFR For African Americans > 60 (> 60); eGFR For Non-African Americans > 60 (> 60)
[2022-01-12] MEDS: Cyanocobalamin (B-12) 1,000 MCG TABLET PO SCH (09:49)
[2022-01-12] MEDS: Cholecalciferol (D-3) 1,000 UNIT (25MCG) TABLET PO SCH (09:49)
[2022-01-12] MEDS ORDERED: *HR* Propofol 200 MG/20 ML VIAL IVP ONE (15:12)
[2022-01-12] MEDS ORDERED: *HR* FentaNYL (PF) 100 MCG/2 ML VIAL ONE (15:12)
[2022-01-12] MEDS ORDERED: Ondansetron 4 MG/2 ML VIAL ONE (15:13)
[2022-01-12] MEDS ORDERED: *HR* Rocuronium Bromide 50 MG/5 ML VIAL ONE (15:13)
[2022-01-12] MEDS ORDERED: Lidocaine HCL 4 ML Topical Solution (Laryng-O-Jet Kit Sterile Pak) TP ONE (15:13)
[2022-01-12] MEDS ORDERED: Lidocaine -MPF 2% 5 ML VIAL ONE (15:13)
[2022-01-12] MEDS: Ringers Solution, Lactated 1,000 ML IVC SCH (16:06)
[2022-01-12] MEDS ORDERED: EPHEDrine 50 MG/ML VIAL ONE (16:26)
[2022-01-12] MEDS: amLODIPine 5 MG TABLET PO SCH (16:56)
[2022-01-12] MEDS ORDERED: *HR* HYDROmorphone PF 0.5 MG/0.5 ML SYRINGE IVP PRN (17:33)
[2022-01-12] MEDS ORDERED: Acetaminophen IV 1,000 MG/100 ML BAG IVPB PRN (17:33)
[2022-01-12] MEDS ORDERED: Ondansetron 4 MG/2 ML VIAL IVP PRN (17:33)
[2022-01-12] MEDS ORDERED: *HR* OxyCODONE Immed Rel 5 MG TABLET PO PRN (17:51)
[2022-01-12] MEDS: Gabapentin 100 MG CAPSULE PO SCH (22:10)
[2022-01-12] MEDS: *HR* OxyCODONE Immed Rel 5 MG TABLET PO PRN (22:11)
[2022-01-12] MEDS: CeFAZolin 2,000 MG/120 ML BAG IVPB SCH (22:50)
[2022-01-13] MEDS: *HR* OxyCODONE Immed Rel 5 MG TABLET PO PRN ×3 (04:11→23:26)
[2022-01-13 04:23] LABS: Basophils % 0.1 %; Hematocrit 33.7 % (35.3-44.9); Immature Granulocytes % 0.5 % (0-4); Lymphocytes # 0.4 K/mcL (0.6-4.6); Lymphocytes % 3.9 %; Mean Corpuscular HGB Conc 33.5 g/dL (31.6-35.5); Mean Corpuscular Hemoglobin 32.9 pg (28.0-33.3); Mean Corpuscular Volume 98.3 fL (83.0-100.0); Mean Platelet Volume 9.9 fL (9.4-12.4); Monocytes # 0.5 K/mcL (0.0-1.3); Monocytes % 5.1 %; Neutrophils # 8.8 K/mcL (1.6-8.9); Platelet Count 164 K/mcL (140-400); Red Blood Count 3.43 M/mcL (3.82-4.97); Segmented Neutrophils % 90.4 %; White Blood Count 9.7 K/mcL (4.3-11.1)
[2022-01-13 04:33] LABS: Hemoglobin 11.3 g/dL (11.5-15.4)
[2022-01-13 04:39] LABS: BUN/Creatinine Ratio 18 (6-26); Blood Urea Nitrogen 10 mg/dL (8-23); Calcium 8.8 mg/dL (8.6-10.3); Carbon Dioxide 25 mEq/L (23-29); Chloride 102 mEq/L (98-107); Glucose 125 mg/dL (70-105); Magnesium 1.7 mg/dL (1.6-2.6); Osmolality,Calculated 283 (280-300); Potassium 4.1 mEq/L (3.5-5.1); Sodium 136 mEq/L (136-145); eGFR For African Americans > 60 (> 60); eGFR For Non-African Americans > 60 (> 60)
[2022-01-13] MEDS: CeFAZolin 2,000 MG/120 ML BAG IVPB SCH (06:08)
[2022-01-13] MEDS: *HR* Enoxaparin 40 MG/0.4 ML SYRINGE SQ SCH (08:56)
[2022-01-13] MEDS: Cholecalciferol (D-3) 1,000 UNIT (25MCG) TABLET PO SCH (08:58)
[2022-01-13] MEDS: Cyanocobalamin (B-12) 1,000 MCG TABLET PO SCH (08:58)
[2022-01-13] MEDS: amLODIPine 5 MG TABLET PO SCH (08:59)
[2022-01-13] MEDS: Gabapentin 100 MG CAPSULE PO SCH (22:33)
[2022-01-14 07:10] LABS: BUN/Creatinine Ratio 22 (6-26); Blood Urea Nitrogen 13 mg/dL (8-23); Calcium 8.7 mg/dL (8.6-10.3); Carbon Dioxide 29 mEq/L (23-29); Chloride 102 mEq/L (98-107); Glucose 94 mg/dL (70-105); Magnesium 1.8 mg/dL (1.6-2.6); Osmolality,Calculated 284 (280-300); Potassium 4.1 mEq/L (3.5-5.1); Sodium 137 mEq/L (136-145); eGFR For African Americans > 60 (> 60); eGFR For Non-African Americans > 60 (> 60)
[2022-01-14] MEDS: Cholecalciferol (D-3) 1,000 UNIT (25MCG) TABLET PO SCH (10:18)
[2022-01-14] MEDS: *HR* Enoxaparin 40 MG/0.4 ML SYRINGE SQ SCH (10:19)
[2022-01-14] MEDS: Cyanocobalamin (B-12) 1,000 MCG TABLET PO SCH (10:19)
[2022-01-14] MEDS: amLODIPine 5 MG TABLET PO SCH (10:19)
[2022-01-14] MEDS: Gabapentin 100 MG CAPSULE PO SCH (22:07)
[2022-01-14] MEDS: Ringers Solution, Lactated 1,000 ML IVC SCH (22:08)
[2022-01-14] MEDS: *HR* OxyCODONE Immed Rel 5 MG TABLET PO PRN (22:20)
[2022-01-15 00:30] LABS: Basophils % 0.5 %; Eosinophils # 0.2 K/mcL (0.0-0.6); Hematocrit 28.9 % (35.3-44.9); Hemoglobin 9.4 g/dL (11.5-15.4); Immature Granulocytes % 0.3 % (0-4); Lymphocytes # 0.8 K/mcL (0.6-4.6); Lymphocytes % 12.9 %; Mean Corpuscular HGB Conc 32.5 g/dL (31.6-35.5); Mean Corpuscular Hemoglobin 32.2 pg (28.0-33.3); Mean Platelet Volume 9.6 fL (9.4-12.4); Monocytes # 0.6 K/mcL (0.0-1.3); Monocytes % 9.1 %; Neutrophils # 4.7 K/mcL (1.6-8.9); Platelet Count 147 K/mcL (140-400); Red Blood Count 2.92 M/mcL (3.82-4.97); Red Cell Distribution Width 12.4 % (11.5-14.5); Segmented Neutrophils % 74.2 %; White Blood Count 6.4 K/mcL (4.3-11.1)
[2022-01-15 00:49] LABS: BUN/Creatinine Ratio 19 (6-26); Blood Urea Nitrogen 10 mg/dL (8-23); Calcium 8.3 mg/dL (8.6-10.3); Carbon Dioxide 30 mEq/L (23-29); Chloride 104 mEq/L (98-107); Glucose 105 mg/dL (70-105); Magnesium 1.8 mg/dL (1.6-2.6); Osmolality,Calculated 287 (280-300); Potassium 3.7 mEq/L (3.5-5.1); Sodium 139 mEq/L (136-145); eGFR For African Americans > 60 (> 60); eGFR For Non-African Americans > 60 (> 60)
[2022-01-15] MEDS: Cyanocobalamin (B-12) 1,000 MCG TABLET PO SCH (09:25)
[2022-01-15] MEDS: Cholecalciferol (D-3) 1,000 UNIT (25MCG) TABLET PO SCH (09:26)
[2022-01-15] MEDS: amLODIPine 5 MG TABLET PO SCH (09:26)
[2022-01-15] MEDS: *HR* Enoxaparin 40 MG/0.4 ML SYRINGE SQ SCH (09:26)
[2022-01-15] MEDS: *HR* HYDROcodone/Acet 5/325 mg TABLET PO PRN ×2 (11:11→23:41)
[2022-01-15] MEDS ORDERED: Iron Sucrose Complex 200 MG in 0.9 % Sodium Chloride 100 ML IVPB ONE (17:53)
[2022-01-15] MEDS: Gabapentin 100 MG CAPSULE PO SCH (21:09)
[2022-01-15] MEDS: Ringers Solution, Lactated 1,000 ML IVC SCH (23:49)
[2022-01-16 02:36] LABS: Basophils % 0.1 %; Eosinophils # 0.2 K/mcL (0.0-0.6); Eosinophils % 2.4 %; Hematocrit 26.5 % (35.3-44.9); Hemoglobin 8.7 g/dL (11.5-15.4); Immature Granulocytes % 0.5 % (0-4); Lymphocytes % 14.1 %; Mean Corpuscular HGB Conc 32.8 g/dL (31.6-35.5); Mean Corpuscular Hemoglobin 32.1 pg (28.0-33.3); Mean Corpuscular Volume 97.8 fL (83.0-100.0); Mean Platelet Volume 10.2 fL (9.4-12.4); Monocytes # 0.6 K/mcL (0.0-1.3); Monocytes % 8.3 %; Neutrophils # 5.5 K/mcL (1.6-8.9); Platelet Count 149 K/mcL (140-400); Red Blood Count 2.71 M/mcL (3.82-4.97); Red Cell Distribution Width 12.4 % (11.5-14.5); Segmented Neutrophils % 74.6 %; White Blood Count 7.4 K/mcL (4.3-11.1)
[2022-01-16 02:54] LABS: BUN/Creatinine Ratio 23 (6-26); Blood Urea Nitrogen 13 mg/dL (8-23); Calcium 8.3 mg/dL (8.6-10.3); Carbon Dioxide 29 mEq/L (23-29); Chloride 103 mEq/L (98-107); Glucose 104 mg/dL (70-105); Magnesium 1.9 mg/dL (1.6-2.6); Osmolality,Calculated 288 (280-300); Potassium 3.4 mEq/L (3.5-5.1); Sodium 139 mEq/L (136-145); eGFR For African Americans > 60 (> 60); eGFR For Non-African Americans > 60 (> 60)
[2022-01-16] MEDS: Cyanocobalamin (B-12) 1,000 MCG TABLET PO SCH (08:46)
[2022-01-16] MEDS: *HR* Enoxaparin 40 MG/0.4 ML SYRINGE SQ SCH (08:46)
[2022-01-16] MEDS: Cholecalciferol (D-3) 1,000 UNIT (25MCG) TABLET PO SCH (08:47)
[2022-01-16] MEDS: amLODIPine 5 MG TABLET PO SCH (08:47)
[2022-01-16 11:21] VITALS: BP 110/71; PULSE 80; TEMP 97.9; O2SAT 98
[2022-01-16] MEDS: Ringers Solution, Lactated 1,000 ML IVC SCH (11:27)
[2022-01-16 11:29] LABS: Influenza A PCR Negative (Negative); Influenza B PCR Negative (Negative); Resp. Syncytial Virus PCR Negative (Negative)
[2022-01-16 11:30] LABS: SARS-CoV-2 by PCR (In House) Negative (Negative)
== END 2022-01-16 15:28 | DRG 481 ==
LOC: 4WAOSI 13:59 → EMEROOARM 13:59 → SUATTDRO 21:37 → 4WAOSI 22:12
PROVIDERS: ADMIT Student in an Organized Health Care Education/Training Program; ATTEND Pharmacist